=== PATIENT | male | born 1955 | race Caucasian/White ===

== ENCOUNTER 2020-02-13 07:56 | Outpatient (REF) | payer MEDICARE, SELFPAY ==
[2020-02-13 09:21] LABS: Alanine Aminotransferase 14 U/L (0-40); Albumin Level 4.2 g/dL (3.5-5.0); Alkaline Phosphatase 74 U/L (39-117); Anion Gap 14 (12-20); Aspartate Amino Transferase 15 U/L (5-37); Bilirubin Total 1.2 mg/dL (0.0-1.0); Blood Urea Nitrogen 18 mg/dL (9-16); Calcium 8.9 mg/dL (8.4-10.2); Carbon Dioxide 25 mmol/L (22-29); Chloride 105 mmol/L (96-108); Cholesterol 222 mg/dL; Estimated Glomerular Filt Rate > 60; Glucose Random 97 mg/dL (60-115); HDL Cholesterol 37 mg/dL; LDL Cholesterol Calculated 152 mg/dl; Potassium 4.5 mmol/l (3.3-5.1); Sodium 139 mmol/L (135-145); Total Protein 6.5 g/dL (6.5-8.0); Triglycerides 169 mg/dL
== END 2020-02-13 07:57 | disposition home or self-care (01) ==
LOC: HO.LAB 07:56
PROVIDERS: PCP Internal Medicine; Visit Provider Internal Medicine
DX: E78.00 Pure hypercholesterolemia, unspecified (principal)
CPT/HCPCS: 36415; 80053; 80061

== ENCOUNTER → 2020-02-19 10:00 | Outpatient (BNVA) | payer MEDICARE, SELFPAY | PROVIDERS: PCP Internal Medicine; Referring Provider Internal Medicine; Visit Provider Urology | DX: N48.6 Induration penis plastica (principal) | CPT/HCPCS: 99202 ==

== ENCOUNTER → 2020-10-30 09:17 | Outpatient (BNVA) | payer MEDICARE, SELFPAY | PROVIDERS: PCP Internal Medicine; Visit Provider Urology | DX: N48.6 Induration penis plastica (principal) | CPT/HCPCS: Q3014 ==

== ENCOUNTER 2020-11-12 07:12 | Outpatient (REF) | payer MEDICARE, SELFPAY ==
[2020-11-12 07:33] LABS: MANUAL DIFF FLAG NO
[2020-11-12 08:12] LABS: Basophils Percent Auto 0.3 % (0-2); Eosinophils Absolute Auto 0.3 X10*3/uL (0.0-0.4); Eosinophils Percent Auto 4.4 % (0-4); Hematocrit 49.1 % (42-52); Hemoglobin 16.5 g/dl (14.0-18.0); Imm Gran Abs Auto 0.04 X10*3/uL (0.00-0.03); Imm Gran Pct Auto 0.7 % (0.0-0.4); Lymphocytes Percent Auto 32.5 % (20-40); Mean Corpuscular HGB Conc 33.6 g/dl (31.0-36.0); Mean Corpuscular Hemoglobin 30.3 pg (27.0-33.0); Mean Corpuscular Volume 90.3 fL (80-98); Mean Platelet Volume 8.9 fL (9.4-12.4); Monocytes Absolute Auto 0.6 X10*3/uL (0.1-1.2); Monocytes Percent Auto 9.5 % (2-11); Neutrophils Absolute Auto 3.2 X10*3/uL (2.0-8.3); Neutrophils Percent Auto 52.6 % (45-73); Platelet Count 217 X10*3/uL (160-400); Red Blood Count 5.44 X10*6/uL (4.60-5.80); Red Cell Distribution Width 12.9 % (11.0-16.0); White Blood Count 6.1 X10*3/uL (4.8-10.8)
[2020-11-12 08:40] LABS: Alanine Aminotransferase 14 U/L (0-40); Albumin Level 4.3 g/dL (3.5-5.0); Alkaline Phosphatase 90 U/L (39-117); Anion Gap 12 (12-20); Aspartate Amino Transferase 15 U/L (5-37); Bilirubin Total 1.5 mg/dL (0.0-1.0); Blood Urea Nitrogen 16 mg/dL (9-16); Carbon Dioxide 25 mmol/L (22-29); Chloride 106 mmol/L (96-108); Cholesterol 230 mg/dL; Estimated Glomerular Filt Rate > 60; Glucose Random 95 mg/dL (60-115); HDL Cholesterol 38 mg/dL; LDL Cholesterol Calculated 151 mg/dl; Potassium 4.6 mmol/L (3.3-5.1); Sodium 138 mmol/L (135-145); Total Protein 6.8 g/dL (6.5-8.0); Triglycerides 205 mg/dL
[2020-11-12 09:02] LABS: Free T4 (Free Thyroxine) 0.88 ng/dL (0.71-1.85); Prostate Specific Antigen Scr 0.54 ng/mL (<0.05-4.0); Thyroid Stimulating Hormone 1.56 uIU/mL (0.32-4.0)
[2020-11-12 09:07] LABS: Folate 15.2 ng/mL (> or = 4.0); Vitamin B12 949 pg/mL (200-900)
== END 2020-11-12 07:13 | disposition home or self-care (01) ==
LOC: HO.LAB 07:12
PROVIDERS: PCP Internal Medicine; Visit Provider Internal Medicine
DX: E78.00 Pure hypercholesterolemia, unspecified (principal); I10 Essential (primary) hypertension; Z12.5 Encounter for screening for malignant neoplasm of prostate
CPT/HCPCS: 36415; 80053; 80061; 82607; 82746; 84153; 84439; 84443; 85025

== ENCOUNTER 2020-12-30 11:26 | Outpatient (REF) | payer MEDICARE, SELFPAY ==
[2020-12-30 12:32] LABS: Influenza A PCR NEGATIVE (Negative); Influenza B PCR NEGATIVE (Negative); Resp Syncy Virus RNA Qual PCR NEGATIVE (Negative); SARS COV2 PCR INHOUSE NEGATIVE (Negative)
== END 2020-12-30 11:27 | disposition home or self-care (01) ==
LOC: HO.LNP 11:26
PROVIDERS: Visit Provider Physician Assistant
DX: J06.9 Acute upper respiratory infection, unspecified (principal); Z20.822 Contact with and (suspected) exposure to COVID-19
CPT/HCPCS: 0241U

== ENCOUNTER 2021-03-16 07:25 | Outpatient (REF) | payer MEDICARE, SELFPAY ==
[2021-03-16 07:34] LABS: MANUAL DIFF FLAG NO
[2021-03-16 07:53] LABS: Basophils Percent Auto 0.5 % (0-2); Eosinophils Absolute Auto 0.4 X10*3/uL (0.0-0.4); Eosinophils Percent Auto 5.7 % (0-4); Hematocrit 48.8 % (42.0-52.0); Hemoglobin 16.1 g/dl (14.0-18.0); Imm Gran Abs Auto 0.03 X10*3/uL (0.00-0.03); Imm Gran Pct Auto 0.5 % (0.0-0.4); Lymphocytes Absolute Auto 2.5 X10*3/uL (1.2-4.9); Lymphocytes Percent Auto 38.3 % (20-40); Mean Corpuscular Volume 90.9 fL (80.0-98.0); Mean Platelet Volume 9.1 fL (9.4-12.4); Monocytes Absolute Auto 0.6 X10*3/uL (0.1-1.2); Monocytes Percent Auto 8.6 % (2-11); Neutrophils Absolute Auto 3.1 x10*3/uL (2.0-8.3); Neutrophils Percent Auto 46.4 % (45-73); Platelet Count 218 X10*3/uL (160-400); Red Blood Count 5.37 X10*6/uL (4.60-5.80); Red Cell Distribution Width 12.3 % (11.0-16.0); White Blood Count 6.6 X10*3/uL (4.8-10.8)
[2021-03-16 08:22] LABS: Alanine Aminotransferase 15 U/L (0-40); Albumin Level 4.3 g/dL (3.5-5.0); Alkaline Phosphatase 83 U/L (39-117); Anion Gap 10 (12-20); Aspartate Amino Transferase 18 U/L (5-37); Bilirubin Total 1.3 mg/dL (0.0-1.0); Blood Urea Nitrogen 14 mg/dL (9-16); Calcium 9.6 mg/dL (8.4-10.2); Carbon Dioxide 29 mmol/L (22-29); Chloride 105 mmol/L (96-108); Cholesterol 179 mg/dL; Estimated Glomerular Filt Rate > 60; Glucose Random 100 mg/dL (60-115); HDL Cholesterol 33 mg/dL; LDL Cholesterol Calculated 112 mg/dl; Potassium 4.9 mmol/L (3.3-5.1); Sodium 139 mmol/L (135-145); Total Protein 6.8 g/dL (6.5-8.0); Triglycerides 174 mg/dL
[2021-03-16 08:45] LABS: Free T4 (Free Thyroxine) 0.87 ng/dL (0.71-1.85); Thyroid Stimulating Hormone 1.67 uIU/mL (0.32-4.0)
[2021-03-16 09:03] LABS: Folate 13.1 ng/mL (> or = 4.0); Vitamin B12 1520 pg/mL (200-900)
== END 2021-03-16 07:26 | disposition home or self-care (01) ==
LOC: HO.LAB 07:25
PROVIDERS: PCP Internal Medicine; Visit Provider Internal Medicine
DX: Z12.5 Encounter for screening for malignant neoplasm of prostate (principal); E78.00 Pure hypercholesterolemia, unspecified
CPT/HCPCS: 36415; 80053; 80061; 82607; 82746; 84153; 84439; 84443; 85025

== ENCOUNTER 2021-03-31 09:48 | Outpatient (REF) | payer MEDICARE, SELFPAY ==
--- NOTE | ~2021-03-31 | US_ITS ---
EXAMINATION: US VENOUS ULTRASOUND WITH DOPPLER LOWER EXTREMITY, LEFT CLINICAL INFORMATION: Leg swelling.. History of thrombus within the superficial greater saphenous vein in the calf. COMPARISON: Ultrasound left lower x-ray 11-26 TECHNIQUE: Ultrasound of the deep veins is performed from the hip to the calf with compression sonography and color and pulse Doppler assessment. Spectral analysis with color-flow imaging is performed. FINDINGS: There is normal venous compression and respiratory variation and augmented flow. The visualized common femoral vein, superficial femoral vein, profunda femoral vein, popliteal vein, and the trifurcation region shows no evidence of deep venous thrombosis. There is persistent thrombus in the superficial greater saphenous vein in the calf region similar previous study suggestive of thrombophlebitis. There is no significant popliteal fossa cyst. If the patient's symptoms persist, followup ultrasound in 5 days 7 days might be of value to exclude proximal propagation from a non-visualized calf vein. US/US venous duplex LE IMPRESSION: No DVT demonstrated in the left lower extremity. There is subdural thrombophlebitis in the left greater saphenous vein in the calf region, similar to previous study.
== END 2021-03-31 09:49 | disposition home or self-care (01) ==
LOC: HO.US 09:48
PROVIDERS: PCP Internal Medicine; Visit Provider Internal Medicine
DX: R60.0 Localized edema (principal); M79.89 Other specified soft tissue disorders
CPT/HCPCS: 93971

== ENCOUNTER 2021-04-13 12:00 | Day surgery (SDC) | payer MEDICARE, SELFPAY ==
[2021-04-08 09:04] VITALS: BMI 26.1
[2021-04-13] MEDS: Gentamicin Sulfate/NaCl 80 MG/100 ML PIGGYBACK 100 MG IV (13:14)
--- NOTE | 2021-04-13 13:15 | P.CONAN_ITS ---
HPI - Anesthesia Eval Consult details Narrative: Screening Colonoscopy REPLACED BY [facility] Active Problems Active Problems: All Active Problems (Updated 04/06/21 @ 16:48 by Micheal Rush MD) Recurrent idiopathic thrombophlebitis (Acute) Left leg swelling (Acute) Impaired glucose tolerance (Acute) Upper respiratory tract infection (Acute) Encounter for Medicare annual wellness exam (Acute) Peyronie disease (Acute) GERD (gastroesophageal reflux disease) (Acute) Tubular adenoma of colon (Acute) Hearing impairment (Acute) Anxiety (Acute) Thrombophlebitis leg (Acute) Knee osteoarthritis (Acute) Hypercholesterolemia (Acute) Hypertension (Acute) Past Medical History Medical History Anxiety GERD (gastroesophageal reflux disease) Hearing impairment Hemorrhoids Hypercholesterolemia Hypertension Knee osteoarthritis Pulmonary nodule Right knee meniscal tear Thrombophlebitis leg Tubular adenoma of colon Family History Family History (Updated 11/26/20 @ 13:29 by JEANETTE Hoffmann) Father No problems noted. Mother Hypertension Paternal Grandmother Pancreatic cancer Family history of problems with anesthesia: No Surgical History Surgical History History of inguinal hernia repair History of knee replacement procedure of right knee History of vasectomy Hx of shoulder surgery S/P medial meniscectomy of right knee History of Problems with Anesthesia: No Social History Social History Housing: House Alcohol intake: current Alcohol intake frequency: holidays/special occasions only Patient Tobacco Use Status: Never used Tobacco e-Cigarette/Vaping Use: Never Used Second Hand Smoke Exposure: No Advance Directives: No Advance Directives Information Provided: Yes Current occupational status: retired Meds Allergies Allergy/AdvReac Type Severity Reaction Status Date / Time lisinopril [LISINOPRIL] Allergy Unknown UNKNOWN Verified 03/31/21 08:51 penicillin G [Penicillin G] Allergy Unknown RASH,HIVES Verified 03/31/21 08:51 penicillin V Allergy Unknown Unknown Verified 03/31/21 08:51 tadalafil AdvReac Severe Leg cramps Verified 03/31/21 08:51 Active Medications: Current Medications Lactated Ringer's (Lr) 1,000 mls @ 50 mls/hr IVCONT .Q20H POOJA Sodium Biphosphate/Sodium Phosphate (Sodium Phosphate,Irion-Dibasic 133 Ml Enema) 133 ml WA ONCE PRN PRN Reason: Poor Colonoscopy Prep Results Home Medications Medication Instructions Recorded Confirmed Last Taken Type cholecalciferol (vitamin D3) 25 25 mcg PO DAILY 11/20/19 03/31/21 Unknown History mcg (1,000 unit) capsule Exam Exam Date and Time: April 13, 2021 1315 Height,Weight and Vital Signs: Height 5 ft 11.5 in Weight 86.183 kg Airway Mallampati Class: II TM Dist: >3cm Neck ROM: Full Loose/Missing/Broken Teeth: No Heart: [id number] Lungs: cta b/l Assessment and Plan Assessment Anesthesia Assessment: Anesthesia Plan Discussed and Chart Reviewed Final Anesthetic Review Family History of Problems with Anesthesia: No History of Problems with Anesthesia: No NPO: Yes ASA Class: III Final Preanesthetic Review: No Changes in Pt Med Stat, Meds/Allgs Chart Reviewed, Consent Obtained/Reviewed and Anes Risks/Benef Reviewed Patient Risk: Intermediate Procedure Risk: Low Assessment/Block/Sedation in SS: Assess/Block/Sedation-SS Anesthetic Plan Anesthetic Plan: MAC: and Agree w/ Assess. and Plan Disposition: Standard PACU
[2021-04-13] MEDS: vancomycin HCL 1,500 MG in 0.9 % Sodium Chloride 500 ML 333.33 MG IV (13:23)
[2021-04-13 13:25] VITALS: BP 136/70; PULSE 54; RESP 18; TEMP 36.1; O2SAT 98
[2021-04-13 15:24] VITALS: BP 97/57; PULSE 47; RESP 14; TEMP 36.4; O2SAT 99
--- NOTE | 2021-04-13 15:24 | PM.OP ---
Brief Operative Note Date of Service: 04/13/21 Pre-op diagnosis: Screening Post-op diagnosis: other (Colon polyps) Procedure: Colonoscopy to the cecum and TI with bx/removal of polyps Surgeon: Carloz Garcia Anesthesia: MAC Was an Supervisor Laboratory Animal Facility used for this Procedure?: No Estimated blood loss (mL): 2.0 Pathology: other (A. Cecal polyp B. Transverse colon polyps) Condition: stable Disposition: PACU
[2021-04-13 15:41] VITALS: BP 122/69; PULSE 50; RESP 16; TEMP 36.7; O2SAT 99
--- NOTE | 2021-04-13 21:07 | OP_ITS ---
SURGEON: Carloz Garcia MD INDICATIONS: The patient presents for evaluation of personal history of tubular adenoma of the colon and colorectal cancer screening. Full consent has been obtained from him for this, including risks of bleeding and perforation. PREOPERATIVE DIAGNOSIS: POSTOPERATIVE DIAGNOSIS: PROCEDURE PERFORMED: Colonoscopy to cecum and terminal ileum with biopsy and removal of polyps. ESTIMATED BLOOD LOSS: COMPLICATIONS: ANESTHESIA: Monitored anesthesia care. ASSISTANTS: SPECIMENS: PREOPERATIVE DIAGNOSES: Colorectal cancer screening and personal history of tubular adenoma of the colon. POSTOPERATIVE DIAGNOSES: Colorectal cancer screening and personal history of tubular adenoma of the colon, small colon polyps, diverticulosis and internal hemorrhoids. DESCRIPTION OF PROCEDURE: The patient was placed in left lateral decubitus position. The digital rectal exam revealed no abnormalities. The Olympus video pediatric colonoscope was entered into the rectum and advanced easily to the cecum. Once in the cecum, I did identify normal-appearing cecal pouch with appendiceal orifice and a normal-appearing ileocecal valve. The terminal ileum was cannulated and appeared normal. The scope was withdrawn back in the colon. The entire cecum was well visualized and appeared normal other than a 3 mm polyp, which was biopsied and completely removed with cold biopsy forceps. The scope was slowly withdrawn assessing all mucosal surfaces carefully. Preparation was excellent. In the transverse colon were 2 flat less than 5 mm polyps, which were all biopsied and completely removed with cold biopsy forceps. I did not visualize any other polyps, colitis, or angiodysplasia. There was a mild amount of sigmoid diverticulosis. In the rectum, scope was retroflexed visualizing small internal hemorrhoids, but no other pathology. The rectal mucosa appeared normal. The scope was straightened and withdrawn from the patient. He tolerated the procedure well and was returned to recovery area in stable condition. IMPRESSION: 1. Colon polyps, status post biopsy removal. 2. Diverticulosis. 3. Internal hemorrhoids. PLAN: The results of biopsy will be checked. I would recommend a repeat colonoscopy in 5 years for further screening. He will otherwise see me on a p.r.n. basis. Of note, he did receive antibiotics prior to the procedure in regard to the relatively recent knee replacement. MD ROSALIA Irving/ROOPA / [id number]
== END 2021-04-13 13:55 | disposition home or self-care (01) ==
PROVIDERS: PCP Internal Medicine; Visit Provider Internal Medicine
PROC: 0DJD8ZZ Inspection of Lower Intestinal Tract, Via Natural or Artificial Opening Endoscopic (ICD-10-PCS; CPT 45378; principal; 2021-04-13 13:20)
DX: Z12.11 Encounter for screening for malignant neoplasm of colon (principal); Z86.010 Personal history of colon polyps; D12.0 Benign neoplasm of cecum; D12.3 Benign neoplasm of transverse colon; K57.30 Diverticulosis of large intestine without perforation or abscess without bleeding; K64.8 Other hemorrhoids; I10 Essential (primary) hypertension; E78.5 Hyperlipidemia, unspecified; Z79.899 Other long term (current) drug therapy; Z88.0 Allergy status to penicillin; Z88.8 Allergy status to other drugs, medicaments and biological substances; Z96.651 Presence of right artificial knee joint
CPT/HCPCS: 45380; 88305; J1580; J3370

== ENCOUNTER → 2021-05-07 14:27 | Outpatient (BNVA) | payer MEDICARE, SELFPAY | PROVIDERS: PCP Internal Medicine; Visit Provider Surgery Vascular Surgery | DX: Z13.6 Encounter for screening for cardiovascular disorders (principal); I83.11 Varicose veins of right lower extremity with inflammation | CPT/HCPCS: 99202 ==

== ENCOUNTER 2021-06-08 12:52 | Outpatient (REF) | payer MEDICARE, SELFPAY ==
--- NOTE | ~2021-06-08 | US_ITS ---
EXAMINATION: US RETROPERITONEAL LIMITED (AORTA) CLINICAL INFORMATION: This is a 66-year-old male evaluate for abdominal aortic aneurysm.. COMPARISON: Comparison is made to a previous study dated 02/02/2016. TECHNIQUE: Patten-scale, color Doppler and spectral Doppler evaluation of the abdominal aorta. FINDINGS: There is mild ectasia of the abdominal aorta with scattered atherosclerotic disease. No abdominal aortic aneurysm is seen. The measurements of the aorta in maximum AP and transverse dimensions respectively are as follows: Proximal: 2.9 x 2.9 cm. Previously, 2.9 x 3.1 cm. Mid: 2.4 x 2.6 cm. Previously, 2.4 x 2.4 cm. Distal: 2.2 x 2.6 cm. Previously, 2.1 x 2.1 cm. PSV: 95 cm/s. The measurements of the common iliac arteries in maximum AP and TRV dimensions are as follows: Right Common Iliac Artery: 1.6 cm. Previously, 1.1 cm. Left Common Iliac Artery: 1.6 cm. Previously, 0.9 cm. US/US abdominal aortic aneurysm IMPRESSION: There is mild ectasia of the abdominal aorta with scattered atherosclerotic disease. No abdominal aortic aneurysm is seen. No significant change is identified.
--- NOTE | ~2021-06-08 | US_ITS ---
EXAMINATION: US VENOUS ULTRASOUND WITH DOPPLER LOWER EXTREMITY, BILATERAL CLINICAL INFORMATION: Right lower extremity, symptomatic varicose veins. COMPARISON: Right lower extremity duplex ultrasound on 07/19/2016. TECHNIQUE: Color flow triplex imaging and compression Doppler was performed to evaluate both the deep and the superficial systems bilaterally. To evaluate the superficial system, the examination was performed in the upright position. Color-flow Doppler ultrasound and compression ultrasound were utilized. In addition, maneuvers were utilized to demonstrate reflux. FINDINGS: SUPERFICIAL ULTRASOUND WITH DOPPLER OF RIGHT LOWER EXTREMITY GREAT SAPHENOUS VEIN: Saphenofemoral junction: 0.7 cm Max diameter: 0.7 cm Min diameter: 0.3cm Reflux: There is reflux throughout the great saphenous vein beginning at the junction/proximal thigh measuring up to 3.1 seconds. Reflux is demonstrated from the junction/proximal thigh all the way through to the ankle. DUPLICATED MEDIAL GREAT SAPHENOUS VEIN: Max Diameter: None Imaged Reflux: NA DUPLICATED LATERAL GREAT SAPHENOUS VEIN: Diameter: None Imaged Reflux: NA SMALL SAPHENOUS VEIN: Proximal Calf: 0.2 cm Distal Calf: 0.2 cm Reflux: No evidence of reflux. VEIN OF GIACOMINI: None Imaged. PERFORATORS: Location: Thigh and mid calf measuring 2 mm. Reflux: None. VARICOSITIES: Location: Mid thigh measuring 3 mm. Reflux: None. DEEP VENOUS ULTRASOUND OF THE RIGHT LOWER EXTREMITY: Common Femoral Vein: Compressible, normal respiratory variation and augmented flow. Femoral vein: Compressible, normal color flow and augmentation. Popliteal Vein: Compressible, normal augmentation. Deep Reflux: There is no evidence of reflux in the deep system in either the common femoral vein or the popliteal vein. Rod's Cyst: There is no evidence of a Rod's cyst. SUPERFICIAL ULTRASOUND WITH DOPPLER OF LEFT LOWER EXTREMITY GREAT SAPHENOUS VEIN: Saphenofemoral junction: 0.8 cm Max diameter: 0.8 cm Min diameter: 0.2 cm Reflux: There is segmental reflux below the knee measuring up to 1.6 seconds. Additional: There is noncompressibility and echogenic thrombus present within the great saphenous vein at the mid calf and ankle. DUPLICATED MEDIAL GREAT SAPHENOUS VEIN: Max Diameter: None Imaged Reflux: NA DUPLICATED LATERAL GREAT SAPHENOUS VEIN: Diameter: None Imaged Reflux: NA SMALL SAPHENOUS VEIN: Proximal Calf: 0.2 cm Distal Calf: 0.2 cm Reflux: There is reflux throughout the small saphenous vein measuring up to 1.6 seconds. VEIN OF GIACOMINI: None Imaged. PERFORATORS: Location: None Imaged Reflux: NA VARICOSITIES: Location: None Imaged Reflux: NA DEEP VENOUS ULTRASOUND OF THE LEFT LOWER EXTREMITY: Common Femoral Vein: Compressible, normal respiratory variation and augmented flow. Femoral vein: Compressible, normal color flow and augmentation. Popliteal Vein: Compressible, normal augmentation. Deep Reflux: There is no evidence of reflux in the deep system in either the common femoral vein or the popliteal vein. Rod's Cyst: There is no evidence of a Rod's cyst. US/US venous duplex LE BI IMPRESSION: Right great saphenous venous insufficiency beginning at the saphenofemoral junction/proximal thigh and extending to the ankle. Segmental left great saphenous venous insufficiency below the knee. Superficial thrombophlebitis of the distal left great saphenous vein at the mid calf and ankle. Left small saphenous venous insufficiency.
== END 2021-06-08 12:53 | disposition home or self-care (01) ==
LOC: HO.US 12:52
PROVIDERS: Visit Provider Surgery Vascular Surgery
DX: Z13.6 Encounter for screening for cardiovascular disorders (principal); I83.11 Varicose veins of right lower extremity with inflammation
CPT/HCPCS: 76706; 93970

== ENCOUNTER → 2021-06-16 14:18 | Outpatient (BNVA) | payer MEDICARE, SELFPAY | PROVIDERS: PCP Internal Medicine; Visit Provider Surgery Vascular Surgery | DX: Z13.6 Encounter for screening for cardiovascular disorders (principal); I83.12 Varicose veins of left lower extremity with inflammation | CPT/HCPCS: 99212 ==

== ENCOUNTER 2021-07-13 11:06 | Outpatient (REF) | payer MEDICARE, SELFPAY ==
--- NOTE | ~2021-07-13 | US_ITS ---
EXAMINATION: US VENOUS ULTRASOUND WITH DOPPLER LOWER EXTREMITY, LEFT CLINICAL INFORMATION: Pain COMPARISON: Previous ultrasound most recent June 2021 TECHNIQUE: Ultrasound of the deep veins is performed from the hip to the calf with compression sonography and color and pulse Doppler assessment. Spectral analysis with color-flow imaging is performed. FINDINGS: There is normal venous compression and respiratory variation and augmented flow. The visualized common femoral vein, superficial femoral vein, profunda femoral vein, popliteal vein, and the trifurcation region shows no evidence of deep venous thrombosis. The left greater saphenous vein is patent. There is no significant popliteal fossa cyst. US/US venous duplex LE LT IMPRESSION: No DVT demonstrated in the left lower extremity.
== END 2021-07-13 11:07 | disposition home or self-care (01) ==
LOC: HO.US 11:06
PROVIDERS: Visit Provider Surgery Vascular Surgery
DX: M79.605 Pain in left leg (principal)
CPT/HCPCS: 93971

== ENCOUNTER → 2021-08-28 07:33 | Outpatient (BNVA) | payer MEDICARE, SELFPAY | PROVIDERS: PCP Internal Medicine; Visit Provider Surgery Vascular Surgery | DX: I83.12 Varicose veins of left lower extremity with inflammation (principal) | CPT/HCPCS: 36475 ==

== ENCOUNTER 2021-08-31 10:24 | Outpatient (REF) | payer MEDICARE, SELFPAY ==
--- NOTE | ~2021-08-31 | US_ITS ---
EXAMINATION: US VENOUS ULTRASOUND WITH DOPPLER LOWER EXTREMITY, LEFT CLINICAL INFORMATION: Status post left RFA on 08/28/2021 COMPARISON: None TECHNIQUE: Ultrasound of the deep veins is performed from the hip to the calf with compression sonography and color and pulse Doppler assessment. Spectral analysis with color-flow imaging is performed. FINDINGS: There is acute thrombus status post RFA visualized in the right greater saphenous vein approximately 0.60 cm from femoral venous junction. No extension of clot into the superficial femoral vein. There is normal venous compression and respiratory variation and augmented flow. The visualized common femoral vein, superficial femoral vein, profunda femoral vein, popliteal vein, and the trifurcation region shows no evidence of deep venous thrombosis. There is no significant popliteal fossa cyst. If the patient's symptoms persist, followup ultrasound in 5 days 7 days might be of value to exclude proximal propagation from a non-visualized calf vein. US/US venous duplex LE IMPRESSION: 1. There is clot visualized in greatest superficial greater saphenous vein approximately 0.6 cm from superficial femoral venous junction. 2. Otherwise no DVT demonstrated in the left lower extremity.
== END 2021-08-31 10:25 | disposition home or self-care (01) ==
LOC: HO.US 10:24
PROVIDERS: Visit Provider Surgery Vascular Surgery
DX: M79.605 Pain in left leg (principal)
CPT/HCPCS: 93971

== ENCOUNTER → 2021-09-10 14:56 | Outpatient (BNVA) | payer MEDICARE, SELFPAY | PROVIDERS: PCP Internal Medicine; Visit Provider Surgery Vascular Surgery | DX: I83.12 Varicose veins of left lower extremity with inflammation (principal) | CPT/HCPCS: 99212 ==

== ENCOUNTER → 2022-05-04 15:07 | Outpatient (BNVA) | payer MEDICARE, SELFPAY | PROVIDERS: PCP Internal Medicine; Visit Provider Surgery Vascular Surgery | DX: I83.11 Varicose veins of right lower extremity with inflammation (principal) | CPT/HCPCS: 99212 ==

== ENCOUNTER 2022-05-18 06:47 | Outpatient (REF) | payer MEDICARE, SELFPAY ==
[2022-05-18 06:58] LABS: MANUAL DIFF FLAG NO
[2022-05-18 07:36] LABS: Basophils Percent Auto 0.7 % (0-2); Eosinophils Absolute Auto 0.4 X10*3/uL (0.0-0.4); Eosinophils Percent Auto 6.9 % (0-4); Hematocrit 48.1 % (42.0-52.0); Hemoglobin 16.2 g/dl (14.0-18.0); Imm Gran Abs Auto 0.02 X10*3/uL (0.00-0.03); Imm Gran Pct Auto 0.4 % (0.0-0.4); Lymphocytes Absolute Auto 2.4 X10*3/uL (1.2-4.9); Lymphocytes Percent Auto 41.7 % (20-40); Mean Corpuscular HGB Conc 33.7 g/dl (31.0-36.0); Mean Corpuscular Hemoglobin 30.8 pg (27.0-33.0); Mean Corpuscular Volume 91.4 fL (80.0-98.0); Mean Platelet Volume 8.9 fL (9.4-12.4); Monocytes Absolute Auto 0.5 X10*3/uL (0.1-1.2); Monocytes Percent Auto 8.3 % (2-11); Neutrophils Absolute Auto 2.4 x10*3/uL (2.0-8.3); Platelet Count 241 X10*3/uL (160-400); Red Blood Count 5.26 X10*6/uL (4.60-5.80); Red Cell Distribution Width 12.3 % (11.0-16.0); White Blood Count 5.7 X10*3/uL (4.8-10.8)
[2022-05-18 07:41] LABS: Estimated Average Glucose 100 mg/dL; Hemoglobin A1c % 5.1 %
[2022-05-18 08:19] LABS: Alanine Aminotransferase 19 U/L (0-40); Albumin Level 4.2 g/dL (3.5-5.0); Alkaline Phosphatase 94 U/L (39-117); Anion Gap 10 (12-20); Aspartate Amino Transferase 19 U/L (5-37); Bilirubin Total 1.7 mg/dL (0.0-1.0); Blood Urea Nitrogen 11 mg/dL (9-16); Calcium 9.3 mg/dL (8.4-10.2); Carbon Dioxide 28 mmol/L (22-29); Chloride 107 mmol/L (96-108); Cholesterol 181 mg/dL; Estimated Glomerular Filt Rate > 60; Glucose Random 94 mg/dL (60-115); HDL Cholesterol 38 mg/dL; LDL Cholesterol Calculated 110 mg/dl; Potassium 4.3 mmol/L (3.3-5.1); Sodium 141 mmol/L (135-145); Total Protein 6.3 g/dL (6.5-8.0); Triglycerides 165 mg/dL
[2022-05-18 08:39] LABS: Folate 12.3 ng/mL (> or = 4.0); Free T4 (Free Thyroxine) 0.94 ng/dL (0.71-1.85); Prostate Specific Antigen Scr 0.59 ng/mL (<0.05-4.0); Thyroid Stimulating Hormone 2.13 uIU/mL (0.32-4.0); Vitamin B12 533 pg/mL (200-900)
== END 2022-05-18 06:48 | disposition home or self-care (01) ==
LOC: HO.LAB 06:47
PROVIDERS: PCP Internal Medicine; Visit Provider Internal Medicine
DX: Z12.5 Encounter for screening for malignant neoplasm of prostate (principal); R73.02 Impaired glucose tolerance (oral); E78.00 Pure hypercholesterolemia, unspecified
CPT/HCPCS: 36415; 80053; 80061; 82607; 82746; 83036; 84153; 84439; 84443; 85025

== ENCOUNTER → 2022-06-11 07:40 | Outpatient (BNVA) | payer MEDICARE, SELFPAY | PROVIDERS: PCP Internal Medicine; Visit Provider Surgery Vascular Surgery | DX: I83.11 Varicose veins of right lower extremity with inflammation (principal) | CPT/HCPCS: 36482 ==

== ENCOUNTER 2022-06-14 11:25 | Outpatient (REF) | payer MEDICARE, SELFPAY ==
--- NOTE | ~2022-06-14 | US_ITS ---
EXAMINATION: TRIPLEX SCANNING OF RIGHT LOWER EXTREMITY; SUPERFICIAL ULTRASOUND WITH DOPPLER OF RIGHT LOWER EXTREMITY CLINICAL INFORMATION: Status post Venaseal of the right great saphenous vein COMPARISON: Ultrasound from 06/08/2021. TECHNIQUE: Color flow triplex imaging and compression Doppler were performed as well as superficial ultrasound with Doppler. FINDINGS: RIGHT LOWER EXTREMITY DEEP VENOUS SYSTEM: Respiratory variation, normal compression and augmented flow are noted throughout the lower extremity. The visualized common femoral vein, femoral vein, profunda femoral vein, popliteal vein and the calf veins show no evidence of deep venous thrombosis. There is no evidence of Rod's cyst. SUPERFICIAL VENOUS SYSTEM: The great saphenous vein is occluded from the access site to just 0.1 cm before the saphenofemoral junction. There is no extension of thrombus into the deep system. US/US venous duplex LE RT IMPRESSION: 1. No evidence of DVT. 2. Excellent appearance status post ablation of the left great saphenous vein as described above.
== END 2022-06-14 11:26 | disposition home or self-care (01) ==
LOC: HO.US 11:25
PROVIDERS: PCP Internal Medicine; Visit Provider Surgery Vascular Surgery
DX: M79.604 Pain in right leg (principal)
CPT/HCPCS: 93971

== ENCOUNTER → 2022-06-24 15:13 | Outpatient (BNVA) | payer MEDICARE, SELFPAY | PROVIDERS: PCP Internal Medicine; Visit Provider Surgery Vascular Surgery | DX: I83.11 Varicose veins of right lower extremity with inflammation (principal); I83.12 Varicose veins of left lower extremity with inflammation | CPT/HCPCS: 99212 ==

== ENCOUNTER 2022-12-16 08:55 | Outpatient (AMB) | payer MEDICARE, SELFPAY ==
[2022-12-16 09:11] VITALS: BP 128/82; PULSE 68; O2SAT 98; BMI 25.6
--- NOTE | 2022-12-16 09:11 | A.OFFPC_ITS ---
Vital Signs 12/16/22 09:11 Height 6 ft 1 in Weight 87.997 kg BMI 25.6 BP 128/82 Blood Pressure Location Lt brachial Position Sitting Pulse 68 Pulse Source Pulse Oximeter Pulse Oximetry (%) 98 Oxygen Delivery Method Room Air Intake Visit Reasons: PE Allergies losartan Allergy (Intermediate, Verified 12/16/22 09:12) cough lisinopril [LISINOPRIL] Allergy (Unknown, Verified 12/16/22 09:12) UNKNOWN penicillin G [Penicillin G] Allergy (Unknown, Verified 12/16/22 09:12) RASH,HIVES penicillin V Allergy (Unknown, Verified 12/16/22 09:12) Unknown tadalafil Adverse Reaction (Severe, Verified 12/16/22 09:12) Leg cramps Medication List - Last Reconciled 12/16/22 by Micheal Rush MD albuterol sulfate 90 mcg/actuation 1 inh inhalation Q4-6H PRN B-complex with vitamin C 1 cap PO DAILY cholecalciferol (vitamin D3) 25 mcg PO DAILY ketotifen fumarate 0.025%(0.035%) ([place]) 1 drp ophthalmic (eye) Q12H loratadine (Claritin) 10 mg PO DAILY metoprolol succinate ER 25 mg PO DAILY 90 days simvastatin 20 mg PO BEDTIME Tobacco use date assessed: 04/13/22 Fall risk assessment: No Falls in past year Last assessed Fall Risk: 12/16/22 Dental Screening Dental Screen Date: 12/16/22 Did you have a dental visit in the last 12 months?: Yes Did you have a dental problem in the last 6 months where you did not have access to dental care?: No Was dental information given to patient?: Patient has dentist HPI PE HPI Details 67-year-old male with hypertension, hype rcholesterol E impaired glucose tolerance and peripheral vascular disease last seen in December 2021. Patient's colonoscopy is up-to-date April 2021. With the peripheral vascular disease patient follows up with the vascular surgeon in June 2019 had GSV right venous seal June 2022 history of left GSV RFA a August 2021. Patient was also seen by the nurse practitioner in April 2022 for finger pain and wanted to do a referral to Rheumatology. R thumb injection done arthritis treatment center- . october had covid. BP med change due to cough- took metoprolol but gerd problem takes on ly [id number] mg 1/2 tab but was told BP high and now taking 25 mg QD. [facility] Medical History (Updated 12/16/22 @ 09:37 by Micheal Rush MD) Varicose veins of left lower extremity with inflammation Encounter for abdominal aortic aneurysm (AAA) screening Left leg swelling Upper respiratory tract infection Right knee meniscal tear Pulmonary nodule Hemorrhoids GERD (gastroesophageal reflux disease) Tubular adenoma of colon Hearing impairment Anxiety Thrombophlebitis leg Knee osteoarthritis Hypercholesterolemia Hypertension Surgical History Status post ablation of incompetent vein using laser (08/28/21) History of knee replacement procedure of right knee S/P medial meniscectomy of right knee Hx of shoulder surgery History of vasectomy History of inguinal hernia repair Family History Father No problems noted. Mother Hypertension Paternal Grandmother Pancreatic cancer Social History (Updated 12/16/22 @ 09:41 by Micheal Rush MD) Housing: House Alcohol intake: current Alcohol intake frequency: holidays/special occasions only Patient Tobacco Use Status: Former Tobacco user Tobacco use type: Cigarette Years Smoked: 2011 quit e-Cigarette/Vaping Use: Never Used Second Hand Smoke Exposure: No Current occupational status: retired Cognitive needs: No Hearing needs: Yes Vision needs: Yes Questionnaire PHQ-9 Over the last 2 weeks, how often have you been bothered by any of the following problems? 1. Little interest or pleasure in doing things: not at all 2. Feeling down, depressed, or hopeless: not at all 3. Trouble falling or staying asleep, or sleeping too much: not at all 4. Feeling tired or having little energy: not at all 5. Poor appetite or overeating: not at all 6. Feeling bad about yourself - or that you are a failure or have let yourself or your family down: not at all 7. Trouble concentrating on things, such as reading the newspaper or watching television: not at all 8. Moving or speaking so slowly that other people could have noticed. Or the opposite - being so fidgety or restless that you have been moving around a lot more than usual: not at all 9. Thoughts that you would be better off or of hurting yourself in some way: not at all Total score: 0 Depression Screening Interpretation: Negative Depression Screening Done: Yes Source: Developed by Drs. Carloz Ca, Dhaval Stark and colleagues, with an educational brennan from [employer]. Thrive Questionnaire Date Thrive assessed: 04/13/22 AUDIT C Alcohol Use Questionnaire (AUDIT-C) 1. How often do you have a drink containing alcohol?: Monthly or less 2. How many drinks containing alcohol do you have on a typical day when you are drinking?: 1 or 2 3. How often do you have six or more drinks on one occasion?: Never Total Score: 1 SAMARA-7 AMB Questionnaire SAMARA-7 Date SAMARA - 7 assessed: 04/13/22 Source: Developed by Drs. Carloz Ca, Brooklynn Shukla, Dhaval Crawford and colleagues, with an educational brennan from [employer]. Review of Systems Const Denies poor appetite and Denies weakness Eyes Denies no additional complaints ENT Reports Normal hearing present, Denies dizziness, Denies nasal congestion, Denies tinnitus and Denies sore throat Card Denies chest pain, Denies syncope, Denies rapid heart rate and Denies dyspnea Resp Denies cough and Denies dyspnea GI Denies change in stool character, Reports constipation, Denies diarrhea, Denies nausea and Denies vomiting Denies dysuria and Denies urinary frequency Neuro Reports Normal hearing present, Denies confusion, Denies dizziness, Denies syncope and Denies weakness Psych Denies confusion Physical exam (Primary Care) Vital Signs: Last Vital Signs Pulse 68 12/16/22 09:11 BP 128/82 12/16/22 09:11 Pulse Ox 98 12/16/22 09:11 Oxygen Delivery Method Room Air 12/16/22 09:11 BMI result Body Mass Index 25.6 Tobacco/Smoking Status: Tobacco use Status Tobacco use date assessed 04/13/22 12/16/22 09:20 Patient Tobacco Use Status Former Tobacco user 12/16/22 09:41 Tobacco use type Cigarette 12/16/22 09:41 e-Cigarette/Vaping Use Never Used 12/16/22 09:41 PHQ-9: PHQ-9 Score PHQ-9: Total score 0 12/16/22 09:26 Depression Screening Interpretation: Negative Thrive Assessment: Date of Thrive Assessment Date Thrive assessed 04/13/22 12/16/22 09:20 Const General: No confusion Orientation/consciousness: No confusion HENMT Head: Yes normocephalic Ears: external ears normal and TM's normal bilaterally Face and sinus: Yes normal facial exam Mouth: moist mucous membranes Throat: Yes tonsils normal Eyes Conjunctivae: conjunctivae normal Pupils: Equal, round and reactive pupils present and Pupil accommodation reflex normal Direct Ophthalmoscopy: normal light reflex Neck Neck: No lymphadenopathy Thyroid: Thyroid normal Chest Chest palpation & inspection: normal inspection of the chest Resp Effort & Inspection: normal respiratory effort and no audible wheezes Auscultation: clear to auscultation bilaterally, no crackles, no wheezes and lung sounds not diminished Cardio Rate: regular rate Rhythm: regular rhythm Peripheral pulses: radial pulses present and dorsalis pedis present GI Other: guaiac negative prostate N Palpation (GI): no masses Auscultation: normal bowel sounds and normoactive bowel sounds Male General Exam: Yes normal external exam Skin General skin exam: no rashes or lesions noted Rashes: no rashes Neuro General: No confusion Cranial nerves: Yes Equal, round and reactive pupils present and Yes Normal hearing present Cognition (Neuro): normal cognition Gait exam (Neuro): Normal gait present Motor exam (neuro): 5/5 motor strength present throughout Deep tendon reflexes (DTR's): Right brachioradialis reflex intensity grade: 2+, Left brachioradialis reflex intensity grade: 2+, Right patellar reflex intensity grade: 2+ and Left patellar reflex intensity grade: 2+ Extrem General: No edema Office Procedures Flu Questionnaire Does the patient have a severe egg allergy?: No Does the patient have severe life threatening allergies?: No Does the patient have a fever or illness today?: No Has the patient ever had Guillain-[place] Syndrome?: No Has the patient ever had any past reaction to a flu shot?: No Immunizations flu vacc [id number] 6mos up(PF) 60 mcg(15 mcgx4)/0.5 mL IM syringe Performing Provider: Micheal Rush MD Performing Location: [facility] Administered by: Jessica Swann CMA on 12/16/22 09:56 Dose Route Admin Location Dispensed Lot Number Expiration Date NDC Utility [employer] Super[employer] 0.5 mL IM Left Deltoid 0.5 mL [id number] 08/07/23 14871-520-67 [employer] VIS Given Date VIS Provided VIS Publication Date 12/16/22 Single Vaccine 20 Eligibility Eligibility Date Funding Source Not VFC Eligible 12/16/22 Private Assessment and Plan Assessment & Plan (1) Annual physical exam: Code(s): Z00.00 - Encounter for general adult medical examination without abnormal findings (2) Hypertension: Code(s): I10 - Essential (primary) hypertension Qualifiers: Hypertension type: essential hypertension Qualified Code(s): I10 - Essential (primary) hypertension Plan: Continue with blood pressure medication. Decrease salt intake and exercise presently on metoprolol 25 mg once a day (3) Hypercholesterolemia: Code(s): E78.00 - Pure hypercholesterolemia, unspecified Plan: Avoid fried foods, chicken skin, eggs, butter margarine, pastries and meat. Be it pork or beef they have a lot of cholesterol LDL goal of less than 130 and triglyceride of less than 150. Patient on simvastatin 20 mg once a day May 2022 last blood work (4) Impaired glucose tolerance: Code(s): R73.02 - Impaired glucose tolerance (oral) Plan: Decrease the amount of carbohydrate intake, pasta, bread, rice and potatoes are all sugar and that is aside from all the sweet stuff, remember that fruits are good but they are Sweet also. (5) Varicose veins of right lower extremity with inflammation: Comment: 06/11/2022- right great saphenous vein Cyanoacralate ablation Code(s): I83.11 - Varicose veins of right lower extremity with inflammation Plan: Patient continues follow-up with vascular surgeon has had surgery/ablation done on both legs (6) Varicose veins of left lower extremity with inflammation: Comment: 08/28/2021 - left great saphenous vein Cyanoacralate ablation Code(s): I83.12 - Varicose veins of left lower extremity with inflammation (7) Plantar fasciitis, right: Code(s): M72.2 - Plantar fascial fibromatosis (8) Allergy desensitization therapy: Comment: Dr. Cummins allergy shots Code(s): Z51.6 - Encounter for desensitization to allergens Orders: Orders Comprehensive Met. Panel 5 Months E78.00 - Pure hypercholesterolemia, unspecified Free T4 (Free Thyroxine) 5 Months E78.00 - Pure hypercholesterolemia, unspecified Lipid Panel 5 Months E78.00 - Pure hypercholesterolemia, unspecified, I10 - Essential (primary) hypertension Hemoglobin A1c 5 Months R73.02 - Impaired glucose tolerance (oral) Complete Blood Count Auto Diff 5 Months E78.00 - Pure hypercholesterolemia, unspecified Prostate Specific Antigen Scr 5 Months E78.00 - Pure hypercholesterolemia, unspecified Vitamin B12 and Folate 5 Months E78.00 - Pure hypercholesterolemia, unspecified Thyroid Stimulating Hormone 5 Months R73.02 - Impaired glucose tolerance (oral) ECG 12 lead EKG Today I10 - Essential (primary) hypertension Influenza [id number] Immunization Today Z23 - Encounter for immunization Medications: Changed From metoprolol succinate ER 25 mg PO DAILY I10 - Essential (primary) hypertension To metoprolol succinate ER 25 mg PO DAILY 90 tabs 3RF 90 days I10 - Essential (primary) hypertension Coding Level of Care Code Est Pt Prev Care >65y(74746) Diagnoses Annual physical exam Z00.00 Essential hypertension I10 Hypertension type: essential hypertension Hypercholesterolemia E78.00 Impaired glucose tolerance R73.02 Varicose veins of right lower extremity with inflammation I83.11 Varicose veins of left lower extremity with inflammation I83.12 Plantar fasciitis, right M72.2 Allergy desensitization therapy Z51.6 Additional Codes PHQ-9 - 11636 - PHQ-9 Billing: ([id number])
== END 2022-12-16 10:00 | disposition home or self-care (01) ==
PROVIDERS: Visit Provider Internal Medicine
DX: Z00.00 Encounter for general adult medical examination without abnormal findings (principal); I10 Essential (primary) hypertension; E78.00 Pure hypercholesterolemia, unspecified; R73.02 Impaired glucose tolerance (oral); I83.11 Varicose veins of right lower extremity with inflammation; I83.12 Varicose veins of left lower extremity with inflammation; M72.2 Plantar fascial fibromatosis; Z51.6 Encounter for desensitization to allergens; Z23 Encounter for immunization
CPT/HCPCS: 90471; 90686; 99397

== ENCOUNTER 2023-04-07 07:49 | Outpatient (REF) | payer MEDICARE, SELFPAY ==
[2023-04-07 08:04] LABS: MANUAL DIFF FLAG NO
--- NOTE | 2023-04-07 08:07 | ECG_ITS ---
Test Reason : essen. htn Blood Pressure : / mmHG Vent. Rate : 052 BPM Atrial Rate : 052 BPM P-R Int : 198 ms QRS Dur : 088 ms QT Int : 442 ms P-R-T Axes : 055 -34 011 degrees QTc Int : 411 ms Sinus bradycardia Left axis deviation Abnormal ECG No previous ECGs available Referred By: Micheal Rush Electronically Signed By:SARAH ALEXANDRE
[2023-04-07 09:03] LABS: Basophils Percent Auto 0.4 % (0-2); Eosinophils Absolute Auto 0.2 X10*3/uL (0.0-0.4); Eosinophils Percent Auto 3.7 % (0-4); Hematocrit 45.4 % (42.0-52.0); Hemoglobin 15.3 g/dl (14.0-18.0); Imm Gran Abs Auto 0.01 X10*3/uL (0.00-0.03); Imm Gran Pct Auto 0.2 % (0.0-0.4); Lymphocytes Absolute Auto 1.7 X10*3/uL (1.2-4.9); Lymphocytes Percent Auto 38.1 % (20-40); Mean Corpuscular HGB Conc 33.7 g/dl (31.0-36.0); Mean Corpuscular Hemoglobin 30.5 pg (27.0-33.0); Mean Corpuscular Volume 90.4 fL (80.0-98.0); Mean Platelet Volume 9.1 fL (9.4-12.4); Monocytes Absolute Auto 0.4 X10*3/uL (0.1-1.2); Monocytes Percent Auto 8.5 % (2-11); Neutrophils Absolute Auto 2.2 x10*3/uL (2.0-8.3); Neutrophils Percent Auto 49.1 % (45-73); Platelet Count 218 X10*3/uL (160-400); Red Blood Count 5.02 X10*6/uL (4.60-5.80); Red Cell Distribution Width 12.7 % (11.0-16.0); White Blood Count 4.6 X10*3/uL (4.8-10.8)
[2023-04-07 09:11] LABS: Estimated Average Glucose 97 mg/dL
[2023-04-07 09:37] LABS: Alanine Aminotransferase 19 U/L (0-40); Albumin Level 4.3 g/dL (3.5-5.0); Alkaline Phosphatase 79 U/L (39-117); Anion Gap 12 (12-20); Aspartate Amino Transferase 23 U/L (5-37); Bilirubin Total 0.9 mg/dL (0.0-1.0); Blood Urea Nitrogen 13 mg/dL (9-16); Calcium 9.5 mg/dL (8.4-10.2); Carbon Dioxide 27 mmol/L (22-29); Chloride 107 mmol/L (96-108); Cholesterol 166 mg/dL (<200); Estimated Glomerular Filt Rate > 60; Glucose Random 92 mg/dL (60-115); HDL Cholesterol 44 mg/dL (>40); LDL Cholesterol Calculated 102 mg/dL (<100); Potassium 4.6 mmol/L (3.3-5.1); Sodium 141 mmol/L (135-145); Triglycerides 102 mg/dL (<150)
[2023-04-07 09:56] LABS: Free T4 (Free Thyroxine) 0.87 ng/dL (0.71-1.85); Thyroid Stimulating Hormone 1.46 uIU/mL (0.32-4.0)
[2023-04-07 09:59] LABS: Folate 13.3 ng/mL (> or = 4.0); Prostate Specific Antigen Scr 0.44 ng/mL (<0.05-4.0); Vitamin B12 449 pg/mL (200-900)
== END 2023-04-07 07:50 | disposition home or self-care (01) ==
LOC: HO.LAB 07:49
PROVIDERS: Visit Provider Internal Medicine
DX: I10 Essential (primary) hypertension (principal); E78.00 Pure hypercholesterolemia, unspecified; R73.02 Impaired glucose tolerance (oral); Z12.5 Encounter for screening for malignant neoplasm of prostate
CPT/HCPCS: 36415; 80053; 80061; 82607; 82746; 83036; 84153; 84439; 84443; 85025; 93005

== ENCOUNTER → 2023-04-07 08:07 | Outpatient (BNV) | payer MEDICARE, SELFPAY | PROVIDERS: Visit Provider Internal Medicine | DX: I10 Essential (primary) hypertension (principal) | CPT/HCPCS: 93010 ==

== ENCOUNTER 2023-06-23 08:21 | Outpatient (AMB) | payer MEDICARE, SELFPAY ==
[2023-06-23 08:43] VITALS: BP 138/82; PULSE 57; O2SAT 98; BMI 25.3
--- NOTE | 2023-06-23 08:43 | MHC.PC.OV ---
Vital Signs 06/23/23 08:43 Height 6 ft 1 in Weight 192 lb BMI 25.3 BP 138/82 Blood Pressure Location Lt brachial Position Sitting Pulse 57 Pulse Source Pulse Oximeter Pulse Oximetry (%) 98 Oxygen Delivery Method Room Air Intake Visit Reasons: 6 month f/u Allergies losartan Allergy (Intermediate, Verified 06/23/23 08:47) cough lisinopril [LISINOPRIL] Allergy (Unknown, Verified 06/23/23 08:47) UNKNOWN penicillin G [Penicillin G] Allergy (Unknown, Verified 06/23/23 08:47) RASH,HIVES penicillin V Allergy (Unknown, Verified 06/23/23 08:47) Unknown tadalafil Adverse Reaction (Severe, Verified 06/23/23 08:47) Leg cramps Tobacco use date assessed: 06/23/23 Fall risk assessment: No Falls in past year Last assessed Fall Risk: 06/23/23 Dental Screening Dental Screen Date: 06/23/23 Did you have a dental visit in the last 12 months?: Yes Did you have a dental problem in the last 6 months where you did not have access to dental care?: No Was dental information given to patient?: Patient has dentist HPI 6 month f/u HPI Details 68-year-old male with hypertension, hypercholesterolemia impaired glucose tolerance peripheral vascular disease coming in for follow-up. Last seen for physical in December 2022 patient's colonoscopy is up-to-date April 2021. Patient also sees Rheumatology seen in January has osteoarthritis with multiple areas and had injections done proximal thumb for the right 1st CMC joint patient has been active playing golf has had plantar fasciitis and has had injections through the arthritis treatment center. No nausea no vomiting no chest pains no shortness a breath patient has seen Urology before and for the problem of Peyronie's and was prescribed tadalafil before and was asking for refill on this medication did call Urology but because he has not been seen for more than a couple of years did not refill the medication. [facility] Medical History (Updated 06/23/23 @ 08:47 by Micheal Rush MD) Varicose veins of left lower extremity with inflammation Encounter for abdominal aortic aneurysm (AAA) screening Left leg swelling Upper respiratory tract infection Right knee meniscal tear Pulmonary nodule Hemorrhoids GERD (gastroesophageal reflux disease) Tubular adenoma of colon Hearing impairment Anxiety Thrombophlebitis leg Knee osteoarthritis Hypercholesterolemia Hypertension Surgical History Status post ablation of incompetent vein using laser (08/28/21) History of knee replacement procedure of right knee S/P medial meniscectomy of right knee Hx of shoulder surgery History of vasectomy History of inguinal hernia repair Family History Father No problems noted. Mother Hypertension Paternal Grandmother Pancreatic cancer Social History (Updated 12/16/22 @ 09:41 by Micheal Rush MD) Housing: House Alcohol intake: current Alcohol intake frequency: holidays/special occasions only Patient Tobacco Use Status: Former Tobacco user Tobacco use type: Cigarette Years Smoked: 2012 quit e-Cigarette/Vaping Use: Never Used Second Hand Smoke Exposure: No Current occupational status: retired Cognitive needs: No Hearing needs: Yes Vision needs: Yes Questionnaire Thrive Questionnaire Date Thrive assessed: 06/23/23 I am a: Patient What is your living situation today?: I have a steady place to live Within the past 12 months, did the food you bought not last and you didn't have the money to get more?: Never true Within the past 12 months, did you worry whether your food would run out before you got money to buy more?: Never true Do you have trouble paying for medicines?: No Do you have trouble getting transportation to medical appointments?: No Do you have trouble paying your heating and electricity bill?: No Do you have trouble taking care of your child, family member or friend?: No Do you have trouble with day-to-day activities such as bathing, preparing meals, shopping, managing finances, etc.?: No Are you currently unemployed and looking for a job?: No Are you interested in more education?: No Please select the resources that you would like help with: None Currently or been in a relationship where the following occur: no concerns reported THRIVE Score: 0 AUDIT C Alcohol Use Questionnaire (AUDIT-C) 1. How often do you have a drink containing alcohol?: Monthly or less 2. How many drinks containing alcohol do you have on a typical day when you are drinking?: 1 or 2 3. How often do you have six or more drinks on one occasion?: Never Total Score: 1 SAMARA-7 AMB Questionnaire SAMARA-7 Date SAMARA - 7 assessed: 06/23/23 Source: Developed by Drs. Carloz Ca, Brooklynn Shukla, Dhaval Crawford and colleagues, with an educational brennan from [employer] Physical exam (Primary Care) Vital Signs: Last Vital Signs Pulse 57 06/23/23 08:43 BP 138/82 06/23/23 08:43 Pulse Ox 98 06/23/23 08:43 Oxygen Delivery Method Room Air 06/23/23 08:43 BMI result Body Mass Index 25.3 Tobacco/Smoking Status: Tobacco use Status Tobacco use date assessed 06/23/23 06/23/23 08:48 Patient Tobacco Use Status Former Tobacco user 06/23/23 08:48 Tobacco use type Cigarette 06/23/23 08:48 e-Cigarette/Vaping Use Never Used 06/23/23 08:48 Thrive Assessment: Date of Thrive Assessment Date Thrive assessed 06/23/23 06/23/23 08:48 Currently or been in a relationship where the following occur: no concerns reported Const General: alert; No acute distress Eyes Conjunctivae: conjunctivae normal Resp Auscultation: clear to auscultation bilaterally Cardio Rate: regular rate Rhythm: regular rhythm GI Inspection: Yes normal to inspection Extrem General: Yes normal to inspection and No edema Immunizations tetanus-diphtheria toxoids-Td 2 Lf unit-2 Lf unit/0.5 mL IM suspension Performing Provider: Micheal Rush MD Performing Location: [facility] Administered by: Jessica Swann CMA on 06/23/23 09:04 Dose Route Admin Location Dispensed Lot Number Expiration Date TNC Tray Delivery Aide 0.5 mL IM Left Deltoid 0.5 mL [id number] 03/19/24 [address]-7 [employer] VIS Given Date VIS Provided VIS Publication Date 06/23/23 Single Vaccine 20 Eligibility Eligibility Date Funding Source Not [facility] Eligible 06/23/23 State funds Assessment and Plan Assessment & Plan (1) Hypertension: Code(s): I10 - Essential (primary) hypertension Qualifiers: Hypertension type: essential hypertension Qualified Code(s): I10 - Essential (primary) hypertension Plan: Continue with blood pressure medication. Decrease salt intake and exercise patient takes metoprolol 25 mg once a day. EKG done showing sinus bradycardia but with left axis deviation. Discussed with the patient on ordering for echocardiogram. (2) Hypercholesterolemia: Code(s): E78.00 - Pure hypercholesterolemia, unspecified Plan: Avoid fried foods, chicken skin, eggs, butter margarine, pastries and meat. Be it pork or beef they have a lot of cholesterol on simvastatin 20 mg once a day (3) Impaired glucose tolerance: Code(s): R73.02 - Impaired glucose tolerance (oral) Plan: Decrease the amount of carbohydrate intake, pasta, bread, rice and potatoes are all sugar and that is aside from all the sweet stuff, remember that fruits are good but they are Sweet also. (4) Peripheral vascular disease: Code(s): I73.9 - Peripheral vascular disease, unspecified Plan: When sitting down elevate the legs, exercise, and support stockings (5) Peyronie disease: Code(s): N48.6 - Induration penis plastica Plan: Tadalafil prescription sent in Orders: Orders CA echo transthoracic complete Today I10 - Essential (primary) hypertension Coding Level of Care Code Est Pt Level 4 (33848) Diagnoses Essential hypertension I10 Hypertension type: essential hypertension Hypercholesterolemia E78.00 Impaired glucose tolerance R73.02 Peripheral vascular disease I73.9 Peyronie disease N48.6
== END 2023-06-23 09:13 | disposition home or self-care (01) ==
PROVIDERS: PCP Internal Medicine; Visit Provider Internal Medicine
DX: I10 Essential (primary) hypertension (principal); E78.00 Pure hypercholesterolemia, unspecified; R73.02 Impaired glucose tolerance (oral); I73.9 Peripheral vascular disease, unspecified; N48.6 Induration penis plastica; Z23 Encounter for immunization
CPT/HCPCS: 90471; 90714; 99214

== ENCOUNTER → 2023-07-14 14:55 | Outpatient (REF) | payer MEDICARE, SELFPAY ==
--- NOTE | 2023-07-14 14:59 | CA_ITS ---
Transthoracic Echocardiogram Patient (Last, First, Middle): Tyler Jerry, Gender: Male Date of : 1955 Age: 68 Procedure Date: 07/14/2023 Procedure Type: Transthoracic Echocardiogram Location: OP Height: 185.42 cm Weight: 87.09 kg BSA: 2.11 m2 Heart Rate: 53 bpm BP: 136 / 82 mmHg Compliance Reviewer: TENA Referring MD: Micheal Rush MD Development Trainer: Jones Roy MD Symptoms: I10 - Essential (primary) hypertension Study Quality: Adequate ECG Rhythm: Bradycardia Conclusions: - Essentially normal study Findings Left Ventricle Normal left ventricular size, thickness, and systolic function. The visually estimated ejection fraction is between 55-60%. Spectral Doppler is indicative of a normal filling pattern. Peak GLS is -19.6%, within normal limits. Right Ventricle Normal right ventricular cavity size and systolic function. Atria The left atrium is normal in size. There is no evidence of interatrial shunt. The right atrium is normal in size. Aortic Valve There is mild calcification of the aortic valve. There is mild thickening of the aortic valve. There is no aortic valve stenosis. There is no aortic valve regurgitation. Mitral Valve Normal mitral valve structure and function. There is trace mitral valve regurgitation. There is no mitral valve stenosis. Pulmonic Valve The pulmonic valve is likely normal. Tricuspid Valve Normal tricuspid valve structure. Tricuspid regurgitation envelope is inadequate for calculation of right ventricular systolic pressure. Normal right atrial pressure. Great Vessels The pulmonary artery was not well visualized. There is no dilatation of the ascending aorta measuring 3.30 cm. Venous The inferior vena cava is normal in size and collapses greater than 50% with inspiration. Pericardium/Pleural There is no evidence of pericardial effusion. Prior Study Comparison No prior study available for comparison. Measurements 2D Linear Measurements IVSd: 1.16 0.6-0.9/0.6-1.0 cm LVIDd: 4.77 3.9-5.3/4.2-5.9 cm LVIDd Index: 2.26 2.4-3.2/2.2-3.1 cm/m2 LVIDs: 3.32 2.0-3.6 cm LVPWd: 0.86 0.7-1.1 cm LA Diam: 3.60 2.7-3.8/3.0-4.0 cm LAIDs Index: 1.71 1.5-2.3 cm/m2 LV Mass: 211.98 67-162/88-224 g LV Mass Index: 100.46 43-95/49-115 g/m2 LVOT Diam: 2.50 3.0+(-)1.3 cm 2D Systolic Function EF 4C: 57.00 >55% EF 2C: 55.90 >55% EF BiP: 55.80 >55% Mitral Valve MV Pk E: 0.63 MV PK A: 0.73 MV Decel Time: 214.00 E/A: 0.90 E'Lateral: 9.46 E'Medial: 7.40 E/E' Med: 8.50 E/E' Lat: 6.60 PHT: 63.00 MVA PHT: 3.49 Decel [place]: 2.92 Aortic Valve AoV Pk Narinder: 1.24 AoV Pk Grad: 6.00 TRUPTI: 3.53 LVOT LVOT Pk Narinder: 0.98 LVOT Mn Narinder: 0.66 LVOT VTI: 0.22 LVOT Pk Grad: 4.00 LVOT Mn Grad: 2.00 LVOT Diam: 2.50 LVOT Area: 4.91 Diastolic Function MV Pk E: 0.63 MV Pk A: 0.73 E/A: 0.90 E'Medial: 7.40 E/E' Med: 8.50 E' Laterial: 9.46 E/E' Lat: 6.60 Right Ventricle TAPSE (mm): 21.00 TVS' Narinder: 9.00 Tricuspid Valve RA Press: 3.00 Great Vessels Aorta Sinus of Valsalva: 3.70 2.0-3.5 cm Ao Asc: 3.30 2.1-3.4 cm Pulmonary Veins Pulm Vein S/D 1.20 Pulmonary Valve PV Pk Narinder: 1.06 Peak PV Grad: 4.00 HI Pk Narinder: 2.26 Updated in Other Vendor System with Status of Final Jones Roy MD electronically signed on 07/14/2023 5:11:10 PM with status of Final
== END ==
LOC: HO.CARD 14:55
PROVIDERS: PCP Internal Medicine; Visit Provider Internal Medicine
DX: I10 Essential (primary) hypertension (principal)
CPT/HCPCS: 93306; 93356

== ENCOUNTER → 2023-07-14 14:59 | Outpatient (BNV) | payer MEDICARE, SELFPAY | PROVIDERS: PCP Internal Medicine; Visit Provider Internal Medicine Cardiovascular Disease | DX: I35.8 Other nonrheumatic aortic valve disorders (principal) | CPT/HCPCS: 93306; 93356 ==

== ENCOUNTER 2023-10-11 08:56 | Outpatient (AMB) | payer MEDICARE, SELFPAY ==
--- NOTE | 2023-10-11 08:58 | MHC.OFFVIS ---
Intake Visit Reasons: follow up PRN LE swelling s/p ablation Intake Note: Patient has complaints of left ankle swelling that is on and off . Right leg is ok. Bilateral foot pain always . Allergies losartan Allergy (Intermediate, Verified 10/11/23 09:00) cough lisinopril [LISINOPRIL] Allergy (Unknown, Verified 10/11/23 09:00) UNKNOWN penicillin G [Penicillin G] Allergy (Unknown, Verified 10/11/23 09:00) RASH,HIVES penicillin V Allergy (Unknown, Verified 10/11/23 09:00) Unknown tadalafil Adverse Reaction (Severe, Verified 10/11/23 09:00) Leg cramps HPI HPI follow up PRN LE swelling s/p ablation: Details: Very pleasant 68-year-old gentleman presents for follow-up regarding venous disease. He had actually undergone bilateral great saphenous vein ablation is. He reports postprocedure he had been doing fairly well and he has had increased swelling of the left lower extremity. He states that it has been affecting his daily activities in particular his golf. He now presents for routine follow-up venous exam. He is concerned most about this left ankle and calf swelling. [facility] Medical History Varicose veins of left lower extremity with inflammation Encounter for abdominal aortic aneurysm (AAA) screening Left leg swelling Upper respiratory tract infection Right knee meniscal tear Pulmonary nodule Hemorrhoids GERD (gastroesophageal reflux disease) Tubular adenoma of colon Hearing impairment Anxiety Thrombophlebitis leg Knee osteoarthritis Hypercholesterolemia Hypertension Surgical History Status post ablation of incompetent vein using laser (08/28/21) History of knee replacement procedure of right knee S/P medial meniscectomy of right knee Hx of shoulder surgery History of vasectomy History of inguinal hernia repair Family History Father No problems noted. Mother Hypertension Paternal Grandmother Pancreatic cancer Social History Housing: House Alcohol intake: current Alcohol intake frequency: holidays/special occasions only Patient Tobacco Use Status: Former Tobacco user Tobacco use type: Cigarette Years Smoked: 2011 quit e-Cigarette/Vaping Use: Never Used Second Hand Smoke Exposure: No Current occupational status: retired Cognitive needs: No Hearing needs: Yes Vision needs: Yes Review of Systems Const Reports as per HPI ENT Reports no additional complaints Card Denies chest pain, Denies chest pain at rest and Denies chest pain with activity Resp Denies chest congestion and Denies cough GI Reports no additional complaints Musc Details: pain over varicosities, aching of lower extremities, swelling, cramping, heaviness and tiredness, itching Denies abnormal gait Skin/Breast Reports pruritus and Denies wounds Neuro Reports no additional complaints and Denies abnormal gait Psych Denies no additional complaints Physical Exam Const General: cooperative, healthy appearing and comfortable Orientation/consciousness: oriented to person, oriented to place and oriented to time Neck Carotids: no bruits Chest Chest palpation & inspection: normal inspection of the chest and normal palpation of entire chest wall Resp Effort & Inspection: normal respiratory effort and able to speak in complete sentences Cardio Rate: regular rate Heart sounds: S1 normal heart sound present and S2 normal heart sound present Peripheral pulses: Peripheral pulses 2+ throughout GI Inspection: Yes normal to inspection Skin Other: +2 edema, left greater than right CEAP Classification C4 - skin color changes Ep - Etiology Primary As - superficial veins P - reflux General skin exam: dry skin Neuro General: oriented to person, oriented to place and oriented to time Extrem Right lower extremity: full ROM, normal capillary refill and edema Left lower extremity: full ROM, normal capillary refill and edema Psych Mental Status: mental status grossly normal Assessment & Plan Assessment & Plan (1) Varicose veins of left lower extremity with inflammation: Comment: 08/28/2021 - left great saphenous vein Cyanoacralate ablation Code(s): I83.12 - Varicose veins of left lower extremity with inflammation Category: Medical Plan: In short patient has had prior left great saphenous vein ablation. I did explain to him that his swelling may be multifactorial. I am happy to repeat left lower extremity testing to rule out any additional venous insufficiency in to see the status of the prior ablation. We did discuss routine conservative measures including compression, elevation, and exercise. He will follow up with us after testing. Thank you for allowing us to assist in his care. If there are any questions or concerns please do not hesitate to contact us. (2) Varicose veins of right lower extremity with inflammation: Comment: 06/11/2022- right great saphenous vein Cyanoacralate ablation Code(s): I83.11 - Varicose veins of right lower extremity with inflammation Category: Medical Plan: See above Orders: Orders US venous duplex LE LT 1 Week I83.12 - Varicose veins of left lower extremity with inflammation Coding Level of Care Code Est Pt Level 4 (61077) Diagnoses Varicose veins of left lower extremity with inflammation I83.12 Varicose veins of right lower extremity with inflammation I83.11
== END 2023-10-11 09:24 | disposition home or self-care (01) ==
PROVIDERS: PCP Internal Medicine; Visit Provider Surgery Vascular Surgery
DX: I83.12 Varicose veins of left lower extremity with inflammation (principal); I83.11 Varicose veins of right lower extremity with inflammation
CPT/HCPCS: 99213

== ENCOUNTER → 2023-10-11 08:56 | Outpatient (BNVA) | payer MEDICARE, SELFPAY | PROVIDERS: PCP Internal Medicine; Visit Provider Surgery Vascular Surgery | DX: I83.12 Varicose veins of left lower extremity with inflammation (principal); I83.11 Varicose veins of right lower extremity with inflammation | CPT/HCPCS: 99212 ==

== ENCOUNTER 2023-10-27 08:14 | Outpatient (REF) | payer MEDICARE, SELFPAY ==
--- NOTE | ~2023-10-27 | US_ITS ---
EXAMINATION: US LOWER EXTREMITY VENOUS (REFLUX EXAM), LEFT CLINICAL INDICATION: Varicose veins of left lower extremity COMPARISON: Venous duplex ultrasound of the left lower extremity dated 08/31/2021 TECHNIQUE: Color flow triplex imaging and compression Doppler was performed to evaluate both the deep and the superficial systems bilaterally. To evaluate the superficial system, the examination was performed in the upright position. Color-flow Doppler ultrasound and compression ultrasound were utilized. In addition, maneuvers were utilized to demonstrate reflux. FINDINGS: DEEP VENOUS ULTRASOUND OF THE LEFT LOWER EXTREMITY: Common Femoral Vein: Compressible, normal respiratory variation and augmented flow. Femoral Vein: Compressible, normal color flow and augmentation. Popliteal Vein: Compressible, normal augmentation. Deep Reflux: There is no evidence of reflux in the deep system in either the common femoral vein, superficial femoral or the popliteal vein. There is no evidence of a Rod's cyst. SUPERFICIAL ULTRASOUND WITH DOPPLER OF LEFT LOWER EXTREMITY: GREAT SAPHENOUS VEIN: Saphenofemoral Junction: 0.8 cm; Reflux: 0 ms The left great saphenous vein is not visualized from the proximal thigh to the knee. There is a short segment of reconstitution at the level of the proximal calf that terminates into a few small varicose veins. Below Knee: 0.3 cm; Reflux: 848 ms The distal right great saphenous vein is occluded from the mid calf to the ankle. SMALL SAPHENOUS VEIN: Saphenopopliteal Junction: 0.3 cm; Reflux: 0 ms Proximal: 0.3 cm; Reflux: 1492 ms Distal: 0.3 cm; Reflux: 0 ms PERFORATORS: Location: Distal SSV Size: 0.2; Reflux: 0 ms Location: Medial mid thigh Size: 0.4; Reflux: 0 ms Location: Medial mid thigh 61 cm from him Size: 0.5; Reflux: 688 ms Location: Medial mid thigh Size: 0.2; Reflux: 0 ms Location: Medial mid thigh 61 cm from heel Size: 0.3; Reflux: 664 ms VARICOSITIES: Location: Mid thigh off femoral vein Size: 0.7; Reflux: 0 ms Location: Mid thigh off femoral vein Size: 0.5; Reflux: 0 ms US/US venous duplex LE LT IMPRESSION: 1. No evidence of deep venous thrombosis or reflux in the left lower extremity. 2. Status post ablation of the left great saphenous vein with a small segment of reconstitution at the level of the proximal calf, which terminates into a few small varicosities, followed by occlusion of the distal segment. 3. Segmental incompetence of the left small saphenous vein at the level of the mid calf with reflux up to 1492 ms. 4. Multiple perforators in the left medial mid thigh at the site of tenderness. Electronically signed by: Maribel Tate MD 11/02/2023 10:40 AM EDT
== END 2023-10-27 08:15 | disposition home or self-care (01) ==
LOC: HO.US 08:14
PROVIDERS: PCP Internal Medicine; Visit Provider Surgery Vascular Surgery
DX: I83.12 Varicose veins of left lower extremity with inflammation (principal)
CPT/HCPCS: 93971

== ENCOUNTER 2023-11-24 10:55 | Outpatient (AMB) | payer MEDICARE, SELFPAY ==
[2023-11-24 11:00] VITALS: BMI 25.3
--- NOTE | 2023-11-24 11:00 | MHC.OFFVIS ---
Vital Signs 11/24/23 11:00 Height 6 ft 1 in Weight 192 lb BMI 25.3 Intake Visit Reasons: follow up s/p 10/27/23 Intake Note: follow up 10/27/23 for Left LE swelling. Pt states worse in the warmer months but still gets swelling. Pt is on his feet often golfing. Accompanied by: Self / Same As Patient Allergies losartan Allergy (Intermediate, Verified 11/24/23 11:02) cough lisinopril [LISINOPRIL] Allergy (Unknown, Verified 11/24/23 11:02) UNKNOWN penicillin G [Penicillin G] Allergy (Unknown, Verified 11/24/23 11:02) RASH,HIVES penicillin V Allergy (Unknown, Verified 11/24/23 11:02) Unknown tadalafil Adverse Reaction (Severe, Verified 11/24/23 11:02) Leg cramps HPI HPI follow up s/p 10/27/23: Details: Very pleasant 68-year-old gentleman presents for for follow-up evaluation regarding left lower extremity swelling. He has had prior venous procedures on the right and left great saphenous vein. He noticed more left ankle and calf swelling. He now presents for routine follow-up [facility] Medical History Varicose veins of left lower extremity with inflammation Encounter for abdominal aortic aneurysm (AAA) screening Left leg swelling Upper respiratory tract infection Right knee meniscal tear Pulmonary nodule Hemorrhoids GERD (gastroesophageal reflux disease) Tubular adenoma of colon Hearing impairment Anxiety Thrombophlebitis leg Knee osteoarthritis Hypercholesterolemia Hypertension Surgical History Status post ablation of incompetent vein using laser (08/28/21) History of knee replacement procedure of right knee S/P medial meniscectomy of right knee Hx of shoulder surgery History of vasectomy History of inguinal hernia repair Family History Father No problems noted. Mother Hypertension Paternal Grandmother Pancreatic cancer Social History Housing: House Alcohol intake: current Alcohol intake frequency: holidays/special occasions only Patient Tobacco Use Status: Former Tobacco user Tobacco use type: Cigarette Years Smoked: 2011 quit e-Cigarette/Vaping Use: Never Used Second Hand Smoke Exposure: No Current occupational status: retired Cognitive needs: No Hearing needs: Yes Vision needs: Yes Review of Systems Const Reports as per HPI ENT Reports no additional complaints Card Denies chest pain, Denies chest pain at rest and Denies chest pain with activity Resp Denies chest congestion and Denies cough GI Reports no additional complaints Musc Details: pain over varicosities, aching of lower extremities, swelling, cramping, heaviness and tiredness, itching Denies abnormal gait Skin/Breast Reports pruritus and Denies wounds Neuro Reports no additional complaints and Denies abnormal gait Psych Denies no additional complaints Physical Exam Vital Signs: BMI result Body Mass Index 25.3 Const General: cooperative, healthy appearing and comfortable Orientation/consciousness: oriented to person, oriented to place and oriented to time Neck Carotids: no bruits Chest Chest palpation & inspection: normal inspection of the chest and normal palpation of entire chest wall Resp Effort & Inspection: normal respiratory effort and able to speak in complete sentences Cardio Rate: regular rate Heart sounds: S1 normal heart sound present and S2 normal heart sound present Peripheral pulses: Peripheral pulses 2+ throughout GI Inspection: Yes normal to inspection Skin Other: +2 edema, CEAP Classification C4 - skin color changes Ep - Etiology Primary As - superficial veins P - reflux General skin exam: dry skin Neuro General: oriented to person, oriented to place and oriented to time Extrem Right lower extremity: full ROM, normal capillary refill and edema Left lower extremity: full ROM, normal capillary refill and edema Psych Mental Status: mental status grossly normal Results Reviewed Results Reviewed: Brief summary of venous insufficiency testing is as follows: left great saphenous vein: Ablated left small saphenous vein: Positive left accessory vein: none present Please note there is no evidence of any venous aneurysms or significant tortuosity Assessment & Plan Assessment & Plan (1) Varicose veins of left lower extremity with inflammation: Comment: 08/28/2021 - left great saphenous vein Cyanoacralate ablation Code(s): I83.12 - Varicose veins of left lower extremity with inflammation Category: Medical Plan: This patient has varicose veins with inflammation. They continue to be a source of discomfort for the patient. The patient has tried conservative treatment with compression, leg elevation and exercise program for over 3 months time. They have been compliant with all treatment. This has provided minimal relief for the patient. I do not anticipate this course of treatment will alter the underlying etiology. The patient has been scheduled for lower extremity venous treatment inclusive of --- left small saphenous vein radiofrequency ablation. Risks, benefits, and complications of this procedure has been discussed in detail with the patient including but not limited to bleeding, infection, and the development of a DVT. The patient has demonstrated a clear understanding and has consented. We will schedule the patient as soon as possible. Thank you for allowing us to participate in this patient's care. If there are any questions or concerns please do not hesitate to contact us. (2) Varicose veins of right lower extremity with inflammation: Comment: 06/11/2022- right great saphenous vein Cyanoacralate ablation Code(s): I83.11 - Varicose veins of right lower extremity with inflammation Category: Medical Plan: See above Coding Level of Care Code Est Pt Level 4 (10428) Diagnoses Varicose veins of left lower extremity with inflammation I83.12 Varicose veins of right lower extremity with inflammation I83.11
== END 2023-11-24 11:23 | disposition home or self-care (01) ==
PROVIDERS: PCP Internal Medicine; Visit Provider Surgery Vascular Surgery
DX: I83.12 Varicose veins of left lower extremity with inflammation (principal); I83.11 Varicose veins of right lower extremity with inflammation
CPT/HCPCS: 99214

== ENCOUNTER → 2023-11-24 10:55 | Outpatient (BNVA) | payer MEDICARE, SELFPAY | PROVIDERS: PCP Internal Medicine; Visit Provider Surgery Vascular Surgery | DX: I83.12 Varicose veins of left lower extremity with inflammation (principal); I83.11 Varicose veins of right lower extremity with inflammation | CPT/HCPCS: 99212 ==

== ENCOUNTER 2023-12-12 08:06 | Outpatient (REF) | payer MEDICARE, SELFPAY ==
[2023-12-12 08:21] LABS: MANUAL DIFF FLAG NO
[2023-12-12 09:52] LABS: Basophils Percent Auto 0.4 % (0-2); Eosinophils Absolute Auto 0.2 X10*3/uL (0.0-0.4); Eosinophils Percent Auto 3.5 % (0-4); Hematocrit 48.7 % (42.0-52.0); Hemoglobin 16.2 g/dl (14.0-18.0); Imm Gran Abs Auto 0.02 X10*3/uL (0.00-0.03); Imm Gran Pct Auto 0.4 % (0.0-0.4); Lymphocytes Absolute Auto 2.2 X10*3/uL (1.2-4.9); Lymphocytes Percent Auto 42.3 % (20-40); Mean Corpuscular HGB Conc 33.3 g/dl (31.0-36.0); Mean Corpuscular Hemoglobin 30.3 pg (27.0-33.0); Mean Corpuscular Volume 91.2 fL (80.0-98.0); Mean Platelet Volume 9.3 fL (9.4-12.4); Monocytes Absolute Auto 0.4 X10*3/uL (0.1-1.2); Monocytes Percent Auto 7.8 % (2-11); Neutrophils Absolute Auto 2.3 x10*3/uL (2.0-8.3); Neutrophils Percent Auto 45.6 % (45-73); Platelet Count 253 X10*3/uL (160-400); Red Blood Count 5.34 X10*6/uL (4.60-5.80); Red Cell Distribution Width 12.7 % (11.0-16.0); White Blood Count 5.1 X10*3/uL (4.8-10.8)
[2023-12-12 10:14] LABS: Estimated Average Glucose 103 mg/dL; Hemoglobin A1C 135.1572 umol/L; Hemoglobin A1c % 5.2 % (<6.0); Total Hemoglobin (HGBA1C) 4017.8851 umol/L
[2023-12-12 11:10] LABS: Alanine Aminotransferase 27 U/L (0-40); Albumin Level 4.2 g/dL (3.5-5.0); Alkaline Phosphatase 85 U/L (39-117); Anion Gap 13 (12-20); Aspartate Amino Transferase 28 U/L (5-37); Bilirubin Total 0.9 mg/dL (0.0-1.0); Blood Urea Nitrogen 17 mg/dL (9-16); Calcium 9.8 mg/dL (8.4-10.2); Carbon Dioxide 26 mmol/L (22-29); Chloride 107 mmol/L (96-108); Cholesterol 178 mg/dL (<200); Estimated Glomerular Filt Rate > 60; Free T4 (Free Thyroxine) 0.83 ng/dL (0.71-1.85); Glucose Random 91 mg/dL (60-115); HDL Cholesterol 40 mg/dL (>40); LDL Cholesterol Calculated 110 mg/dL (<100); Potassium 4.8 mmol/L (3.3-5.1); Sodium 141 mmol/L (135-145); Thyroid Stimulating Hormone 1.41 uIU/mL (0.32-4.0); Triglycerides 144 mg/dL (<150)
[2023-12-12 11:28] LABS: Folate 14.9 ng/mL (> or = 4.0); Prostate Specific Antigen Scr 0.47 ng/mL (<0.05-4.0); Vitamin B12 443 pg/mL (200-900)
== END 2023-12-12 08:07 | disposition home or self-care (01) ==
LOC: HO.LAB 08:06
PROVIDERS: PCP Internal Medicine; Visit Provider Internal Medicine
DX: R73.02 Impaired glucose tolerance (oral) (principal); E78.00 Pure hypercholesterolemia, unspecified; Z12.5 Encounter for screening for malignant neoplasm of prostate
CPT/HCPCS: 36415; 80053; 80061; 82607; 82746; 83036; 84153; 84439; 84443; 85025

== ENCOUNTER 2023-12-26 08:39 | Outpatient (AMB) | payer MEDICARE, SELFPAY ==
[2023-12-26 08:41] VITALS: BP 132/90; PULSE 79; O2SAT 95; BMI 26.1
--- NOTE | 2023-12-26 08:41 | A.OFFPC_ITS ---
Vital Signs 12/26/23 08:41 Height 6 ft 1 in Weight 198 lb BMI 26.1 BP 132/90 H Blood Pressure Location Lt brachial Position Sitting Pulse 79 Pulse Source Pulse Oximeter Pulse Oximetry (%) 95 Oxygen Delivery Method Room Air Intake Visit Reasons: annual exam Manager Administration Required: No Allergies losartan Allergy (Intermediate, Verified 12/26/23 09:02) cough lisinopril [LISINOPRIL] Allergy (Unknown, Verified 12/26/23 09:02) UNKNOWN penicillin G [Penicillin G] Allergy (Unknown, Verified 12/26/23 09:02) RASH,HIVES penicillin V Allergy (Unknown, Verified 12/26/23 09:02) Unknown tadalafil Adverse Reaction (Severe, Verified 12/26/23 09:02) Leg cramps Medication List - Last Reconciled 12/26/23 by Phyllis hCowdhury PA-C albuterol sulfate 90 mcg/actuation 1 inh inhalation Q4-6H PRN B-complex with vitamin C 1 cap PO DAILY cholecalciferol (vitamin D3) 25 mcg PO DAILY ketotifen fumarate 0.025%(0.035%) ([place]) 1 drp ophthalmic (eye) Q12H loratadine (Claritin) 10 mg PO DAILY metoprolol succinate ER 25 mg PO DAILY 90 days simvastatin 20 mg PO BEDTIME tadalafil 5 mg PO DAILY PRN 90 days Tobacco use date assessed: 12/26/23 Fall risk assessment: No Falls in past year Last assessed Fall Risk: 12/26/23 Dental Screening Dental Screen Date: 12/26/23 Did you have a dental visit in the last 12 months?: Yes Did you have a dental problem in the last 6 months where you did not have access to dental care?: No Was dental information given to patient?: Patient has dentist HPI annual exam HPI Details 68-year-old male with hypertension, hype rcholesterolemia, impaired glucose tolerance, peripheral vascular disease last seen by Dr. Rush june 2023 coming in for annual exam. In review of the notes, patient was seen by vascular surgery 11/24/2023 scheduled for lower extremity venous ablation.?Patient was also seen by arthritis treatment center advised to continue on current medication and follow up as needed. Patient presenting with concerns today, notably pain and swelling in the left ankle due to venous insufficiency. He has a history of undergoing procedures to seal veins in both lower limbs, with another procedure scheduled for the following month. He experiences exacerbation of symptoms with prolonged walking, especially notable after a recent cruise to [facility], where the symptoms intensified. The patient also reports osteoarthritis affecting the toes and dorsal regions of the feet, receiving regular care at an arthritis treatment center. Interestingly, injections have been offered but declined as they are not advised for the current condition of the top of the feet; management includes the use of naproxen-based Voltaren gel, which provides intermittent relief. Despite recent weight gain attributed to dietary indulgence during travels, the patient maintains a stable blood sugar level with an A1c of 5.2%, negating any diabetes diagnosis. His past colorectal screening revealed a tubular adenoma, yet follow-up is not mandated for another few years. [facility] Medical History Varicose veins of left lower extremity with inflammation Encounter for abdominal aortic aneurysm (AAA) screening Left leg swelling Upper respiratory tract infection Right knee meniscal tear Pulmonary nodule Hemorrhoids GERD (gastroesophageal reflux disease) Tubular adenoma of colon Hearing impairment Anxiety Thrombophlebitis leg Knee osteoarthritis Hypercholesterolemia Hypertension Surgical History Status post ablation of incompetent vein using laser (08/28/21) History of knee replacement procedure of right knee S/P medial meniscectomy of right knee Hx of shoulder surgery History of vasectomy History of inguinal hernia repair Family History Father No problems noted. Mother Hypertension Paternal Grandmother Pancreatic cancer Social History Housing: House Alcohol intake: current Alcohol intake frequency: holidays/special occasions only Patient Tobacco Use Status: Former Tobacco user Tobacco use type: Cigarette Years Smoked: 2011 quit e-Cigarette/Vaping Use: Never Used Second Hand Smoke Exposure: No Current occupational status: retired Cognitive needs: No Hearing needs: Yes Vision needs: Yes Questionnaire PHQ-9 Over the last 2 weeks, how often have you been bothered by any of the following problems? 1. Little interest or pleasure in doing things: not at all 2. Feeling down, depressed, or hopeless: not at all 3. Trouble falling or staying asleep, or sleeping too much: not at all 4. Feeling tired or having little energy: not at all 5. Poor appetite or overeating: not at all 6. Feeling bad about yourself - or that you are a failure or have let yourself or your family down: not at all 7. Trouble concentrating on things, such as reading the newspaper or watching television: not at all 8. Moving or speaking so slowly that other people could have noticed. Or the opposite - being so fidgety or restless that you have been moving around a lot m ore than usual: not at all 9. Thoughts that you would be better off or of hurting yourself in some way: not at all Total score: 0 Depression Screening Interpretation: Negative Depression Screening Done: Yes Source: Developed by Drs. Carloz Ca, Brooklynn Shukla, Dhaval Crawford and colleagues, with an educational brennan from [employer]. Thrive Questionnaire Date Thrive assessed: 06/23/23 I am a: Patient What is your living situation today?: I have a steady place to live Within the past 12 months, did the food you bought not last and you didn't have the money to get more?: Never true Within the past 12 months, did you worry whether your food would run out before you got money to buy more?: Never true Do you have trouble paying for medicines?: No Do you have trouble getting transportation to medical appointments?: No Do you have trouble paying your heating and electricity bill?: No Do you have trouble taking care of your child, family member or friend?: No Do you have trouble with day-to-day activities such as bathing, preparing meals, shopping, managing finances, etc.?: No Are you currently unemployed and looking for a job?: No Are you interested in more education?: No Please select the resources that you would like help with: None Currently or been in a relationship where the following occur: No concerns reported THRIVE Score: 0 AUDIT C Alcohol Use Questionnaire (AUDIT-C) 1. How often do you have a drink containing alcohol?: 2-3 times a week 2. How many drinks containing alcohol do you have on a typical day when you are drinking?: 1 or 2 3. How often do you have six or more drinks on one occasion?: Never Total Score: 3 SAMARA-7 AMB Questionnaire SAMARA-7 Date SAMARA - 7 assessed: 12/26/23 Feeling nervous, anxious, or on edge: 0 = Not at all Not being able to stop or control worryin = Not at all Worrying too much about different things: 0 = Not at all Trouble relaxin = Not at all Being so restless that it is hard to sit still: 0 = Not at all Becoming easily annoyed or irritable: 0 = Not at all Feeling afraid as if something awful might happen: 0 = Not at all Total SAMARA-7 score (0-4 normal; 5-9 mild; 10-14 moderate; 15-21 severe): 0 Source: Developed by Drs. Carloz Ca, Brooklynn Shukla, Dhaval Crawford and colleagues, with an educational brennan from [employer]. SAMARA-7 Assessment Billing SAMARA-7 Assessment Tool: SAMARA-7 Assessment 83866 Review of Systems Const Denies body aches, Denies fatigue, Denies fever(s), Denies frequent falls, Denies headache(s) and Denies weakness Eyes Reports no additional complaints and Denies change in vision ENT Denies dysphagia, Denies dizziness, Denies facial pain, Denies headache(s), Denies nasal congestion and Denies odynophagia Card Denies chest pain, Denies syncope, Denies irregular heart rhythm, Denies leg edema, Denies lightheadedness and Denies dyspnea Resp Denies cough and Denies dyspnea GI Denies abdominal pain, Denies constipation, Denies dysphagia, Denies dyspepsia, Denies diarrhea, Denies nausea, Denies odynophagia and Denies vomiting Denies dysuria, Denies urinary frequency, Denies urinary hesitancy and Denies urinary urgency Musc Denies back pain and Denies myalgias Skin/Breast Reports system reviewed and no additional complaints, except as documented Neuro Denies dizziness, Denies syncope, Denies frequent falls, Denies headache(s) and Denies weakness Psych Reports no additional complaints Endo Denies fatigue Physical exam (Primary Care) Vital Signs: Oxygen Delivery Method Room Air 12/26/23 08:41 Tobacco/Smoking Status: Tobacco use Status Tobacco use date assessed 06/23/23 06/23/23 08:48 Patient Tobacco Use Status Former Tobacco user 06/23/23 08:48 Tobacco use type Cigarette 06/23/23 08:48 e-Cigarette/Vaping Use Never Used 06/23/23 08:48 Depression Screening Interpretation: Negative Thrive Assessment: Date of Thrive Assessment Date Thrive assessed 06/23/23 06/23/23 08:48 Currently or been in a relationship where the following occur: No concerns reported Const General: cooperative, healthy appearing, comfortable and no acute distress Orientation/consciousness: patient oriented x3 HENMT Head: Yes normocephalic Ears: hearing grossly normal bilaterally, external ears normal, TM's normal bilaterally and EAC's normal General nose exam: Normal external nose present Face and sinus: Yes normal facial exam and Yes sinuses nontender Mouth: Normal oral and palatal mucosa present and tongue normal Throat: Yes posterior oropharynx normal Eyes General: appearance normal, both eyes and all related structures Conjunctivae: conjunctivae normal Pupils: Equal, round and reactive pupils present EOM: EOMs intact bilaterally and No Nystagmus present Neck Neck: Yes normal visual inspection, Yes full ROM and Yes no lymphadenopathy Chest Chest palpation & inspection: normal inspection of the chest Resp Effort & Inspection: normal respiratory effort Auscultation: clear to auscultation bilaterally, no crackles, no rales, no rhonchi, no wheezes and breath sounds present Cardio Rate: regular rate Rhythm: regular rhythm Peripheral pulses: radial pulses present and dorsalis pedis present GI Inspection: Yes normal to inspection and No Abdominal wall edema Palpation (GI): Soft to palpation, not firm and nontender Auscultation: normal bowel sounds Rectal Exam - Male: Yes deferred General: Yes no CVA tenderness Back/Spine/Pelvis Back: no CVA tenderness Skin General skin exam: no rashes or lesions noted Neuro General: patient oriented x3 Cranial nerves: Yes Equal, round and reactive pupils present, Yes Midline tongue present, Yes Ability to bilaterally elevate shoulders present and No Nystagmus present Gait exam (Neuro): Normal gait present Extrem Other: Nonpitting edema of left ankle. General: Yes normal to inspection, Yes full ROM, No no pedal edema and No edema Psych Speech and movement: Normal speech and movement present Affect: normal affect Insight: Good insight present (Psych) Judgement: Good judgement present (Psych) Coding Level of Care Code Est Pt Prev Care >65y(05524) Diagnoses Peripheral vascular disease I73.9 Plantar fasciitis, right M72.2 Varicose veins of right lower extremity with inflammation I83.11 Impaired glucose tolerance R73.02 Hypercholesterolemia E78.00 Essential hypertension I10 Hypertension type: essential hypertension Additional Codes SAMARA-7 Assessment Billing - SAMARA-7 Assessment Tool: SAMARA-7 Assessment 06920 ([id number]) Assessment & Plan Assessment & Plan (1) Peripheral vascular disease: Code(s): I73.9 - Peripheral vascular disease, unspecified Category: Medical Plan: Continue wearing compression socks as tolerated. Follow up post-procedure with the vein specialist. (2) Plantar fasciitis, right: Code(s): M72.2 - Plantar fascial fibromatosis Category: Medical Plan: Continue to follow with arthritis treatment center previously had cortisone injections and ankles. (3) Varicose veins of right lower extremity with inflammation: Comment: 06/11/2022- right great saphenous vein Cyanoacralate ablation Code(s): I83.11 - Varicose veins of right lower extremity with inflammation Category: Medical Plan: Currently following with Dr. Engel and scheduled to have repeat ablation in the coming months. Advised to use compression stockings and elevate the legs when possible. (4) Impaired glucose tolerance: Code(s): R73.02 - Impaired glucose tolerance (oral) Category: Medical Plan: Decrease the amount of carbohydrates such as pasta, bread, rice, and potatoes and limit the amount of sweets. Although fruits are generally healthy they should be eaten in moderation as they are still high in sugar. (5) Hypercholesterolemia: Code(s): E78.00 - Pure hypercholesterolemia, unspecified Category: Medical Plan: Avoid foods that are high in cholesterol such as red meat, fried foods, eggs and baked goods. Triglyceride goal of less than 150 and LDL goal of less than 100. C ontinue on simvastatin 20 mg (6) Hypertension: Code(s): I10 - Essential (primary) hypertension Category: Medical Qualifiers: Hypertension type: essential hypertension Qualified Code(s): I10 - Essential (primary) hypertension Plan: Continue on current blood pressure medication. Avoid salt intake and encourage healthy diet and regular exercise. Blood pressure slightly elevated today on exam patient states he just returned from vacation had of salt and decreased exercise at that time. We will repeat blood pressure in 3 months advised patient to take blood pressures at home if they are persistently over 140/90 to reach out to the office. Plan This note was constructed using voice recognition software. While every effort has been made to ensure accuracy and executive recruiter, still areas may have been included sometimes these areas may affect the content or meeting of the given symptoms. Total time spent caring for the patient today was 30 minutes. This includes time spent before the visit reviewing the chart, time spent during the visit, and time spent after the visit and documentation. Patient was informed and verbally consented to the use of an ambient scribe for clinic note documentation during this visit.
== END 2023-12-26 09:19 | disposition home or self-care (01) ==
PROVIDERS: PCP Internal Medicine
DX: Z00.00 Encounter for general adult medical examination without abnormal findings (principal); I73.9 Peripheral vascular disease, unspecified; M72.2 Plantar fascial fibromatosis; I83.11 Varicose veins of right lower extremity with inflammation; R73.02 Impaired glucose tolerance (oral); E78.00 Pure hypercholesterolemia, unspecified; I10 Essential (primary) hypertension

== ENCOUNTER → 2023-12-26 08:39 | Outpatient (BNVA) | payer MEDICARE, SELFPAY | PROVIDERS: PCP Internal Medicine | DX: Z00.00 Encounter for general adult medical examination without abnormal findings (principal); I73.9 Peripheral vascular disease, unspecified; M72.2 Plantar fascial fibromatosis; I83.11 Varicose veins of right lower extremity with inflammation; E78.00 Pure hypercholesterolemia, unspecified; R73.02 Impaired glucose tolerance (oral); I10 Essential (primary) hypertension | CPT/HCPCS: 96127; 99397 ==

== ENCOUNTER 2024-01-20 13:23 | Outpatient (AMB) | payer MEDICARE, SELFPAY ==
[2024-01-20 13:23] VITALS: BMI 26.1
--- NOTE | 2024-01-20 13:23 | A.OFFVIS_ITS ---
Vital Signs 01/20/24 13:23 Height 6 ft 1 in Weight 198 lb BMI 26.1 Intake Visit Reasons: Left SSV RFA Accompanied by: Self / Same As Patient Allergies losartan Allergy (Intermediate, Verified 01/20/24 13:) cough lisinopril [LISINOPRIL] Allergy (Unknown, Verified 01/20/24 13:24) UNKNOWN penicillin G [Penicillin G] Allergy (Unknown, Verified 01/20/24 13:24) RASH,HIVES penicillin V Allergy (Unknown, Verified 01/20/24 13:24) Unknown tadalafil Adverse Reaction (Severe, Verified 01/20/24 13:24) Leg cramps PFSH Medical History (Reviewed 01/20/24 @ :24 by JEANETTE Jones) Varicose veins of left lower extremity with inflammation Encounter for abdominal aortic aneurysm (AAA) screening Left leg swelling Upper respiratory tract infection Right knee meniscal tear Pulmonary nodule Hemorrhoids GERD (gastroesophageal reflux disease) Tubular adenoma of colon Hearing impairment Anxiety Thrombophlebitis leg Knee osteoarthritis Hypercholesterolemia Hypertension Surgical History Status post ablation of incompetent vein using laser (08/28/21) History of knee replacement procedure of right knee S/P medial meniscectomy of right knee Hx of shoulder surgery History of vasectomy History of inguinal hernia repair Family History Father No problems noted. Mother Hypertension Paternal Grandmother Pancreatic cancer Social History Housing: House Alcohol intake: current Alcohol intake frequency: holidays/special occasions only Patient Tobacco Use Status: Former Tobacco user Tobacco use type: Cigarette Years Smoked: 2011 quit e-Cigarette/Vaping Use: Never Used Second Hand Smoke Exposure: No Current occupational status: retired Cognitive needs: No Hearing needs: Yes Vision needs: Yes Physical Exam Vital Signs: BMI result Body Mass Index 26.1 Office Procedures Vascular Office Procedure Details Details: Diagnosis: Varicose veins with inflammation of left leg Procedure: Endovenous radiofrequency ablation of the left small saphenous vein(s) of the lower extremity with Venclose Anesthesia: Local infiltration 5 cc, Tumescent 200 cc. Estimated Blood Loss: Minimal The patient was transferred to the procedure suite and the insufficient small saphenous vein was mapped by ultrasound and diagrammed on the overlying skin. The depth and diameter of the vein(s) to be treated was documented. The varicose tributary veins and suitable access sites were identified and mapped as well. The patient was then positioned prone on the procedure table. The affected limb was prepped and draped in the usual sterile fashion. The RF catheter was placed on the sterile field, flushed and wiped down, prepared, and connected by a sterile cable. The patient was placed in a prone position and local anesthesia was instilled in the skin overlying the access site. A skin incision was made overlying the iden tified and mapped small saphenous vein entry site. The vein was accessed using ultrasound guidance and the Seldinger technique, a guide wire was introduced through the needle, which was then exchanged over the guide wire for a 6F sheath, which was secured in place. The guide wire was removed and the sheath was flushed. The RF catheter was placed into the vein through the sheath and preferentially, imaging was used to place the catheter tip just inferior to the saphenopopliteal junction. Additionally, it was confirmed by ultrasound guidance that the catheter tip was also placed a minimum of 1.5cm distal to the saphenopopliteal junction. After the RF catheter position was verified by ultrasound, tumescent anesthesia was infiltrated, under ultrasound guidance, precisely into the perivenous c ompartment along the entire length of vein from the entry site to the saphenofemoral junction until a halo of fluid was noted around the vein. The patient was appropriately position. After RF catheter position was again confirmed with ultrasound imaging, and under direct external compression along the length of the heating element, RF energy was applied. The vein was segmentally ablated by heating a 10 cm segment and then indexing the catheter forward by 9.5 cm until the treatment length is completed. Device temperature was maintained at 120 plus or minus 5 degrees C with an initial power level of 4W/cm dropping to below 2W/cm for each treatment. Total vein length treated 22.5 cm Total cycles of RF 4. Repeat ultrasound of the saphenous vein was performed, confirming successful treatment. The catheter and sheath were withdrawn and hemostasis established with direct pressure. After assuring hemostasis, the skin incision over the saphenous vein was closed with a bandage and a compression wrap was applied from the level of the foot to the most proximal level of the thigh. Discharge instructions were given to the patient inclusive of follow-up ultrasound and [place] [address]18 - Endovenous RF, 1st Vein All charges added?: Procedure code (CPT) selection complete Assessment & Plan Assessment & Plan (1) Varicose veins of left lower extremity with inflammation: Comment: 08/28/2021 - left great saphenous vein Cyanoacralate ablation 01/20/2024 - left small saphenous vein radiofrequency ablation Code(s): I83.12 - Varicose veins of left lower extremity with inflammation Category: Medical Plan: See op note Coding Level of Care Code Procedure Only Diagnoses Varicose veins of left lower extremity with inflammation I83.12 CPT Codes Details - Vascular 1: 52418 - Endovenous RF, 1st Vein ([id number])
--- OUTSIDE RECORDS SUMMARY | 2024-01-20 13:25 | XMS_ITS | Patient Health Record ---
Author Organization [facility] Address [address] [place] [address] Care Team Providers Care Graduate Studies Dean Name Role Phone Po Micheal MCCAIN Primary Care Provider Carloz Salgado [phone] ALLERGIES Allergen (clinical drug ingredient) Drug/Non Drug Allergy documented on EMR Reaction Allergy Type Onset Date Status Penicillin Unknown Drug Allergy Active REASON FOR REFERRAL No Information MEDICATIONS Medication SIG (Take, Route, Frequency, Duration) Notes Start Date End Date Status Losartan Potassium 50 MG Orally Active Vitamin D Active Vitamin E 100 UNIT 1 capsule Orally Onc e a day for 30 day(s) Active Vitamin B + C Complex - as directed Orally Active Simvastatin 20 MG 1 tablet in the even ing Orally Once a day Active IMMUNIZATIONS Vaccine Route Administration Date Status Comme nts Influenza Unknown 11/19/2020 Administered SOCIAL HISTORY Sex Assigned At : Social History Observation Description Sex Assigned At Unknown Alcohol Screen Question Answer Notes Did you have a drink contain ing alcohol in the past year? Yes How often did you have a dri nk containing alcohol in the past year? 2 to 4 times a month (2 points) How many drinks did you have on a typical day when you were drinking in the past year? 1 or 2 drinks (0 point) How often did you have 6 or more drinks on one occasion in the past year? Never (0 point) Points 2 Interpretation Negative PROBLEMS Problem Type ICD Code Onset Dates Problem Status W/U Status Risk SNOMED Code Notes Problem History of adenomatous polyp of colon (Z86.010) Active confirmed 364413796 Problem Encounter for screening for malignant neoplasm of colon (Z12.11) Active confirmed 268705581 Problem Encounter for screening for malignant neoplasm of rectum (Z12.12) Active confirmed Screening fo r malignant neoplasm of rectum (183006323) Problem Preprocedural examination (Z01.818) Active confirmed 14535804 Problem Cough (R05.9) Active confirmed 51341276 Problem Chronic throat clearing (R68.89) Active confirmed 454333270 Problem Diverticulosis of colon (K57.30) Active confirmed Diverticulosi s of colon (924632766) PLAN OF TREATMENT Pending Test Test Name Order Date Pathology 04/13/2021 Future Test Test Name Order Date COLONOSCOPY 02/28/2015 COLONOSCOPY 03/12/2021 Insurance Providers Payer Name Payer Address Payer Phone Subscriber Number Group Number Insured Name Patient Relationship to Insured Coverage Start Date Coverage End Date [facility] [address] [place] [phone] [id number] ABNUDIO KELLER Self - patient is the insured MEDICAL (GENERAL) HISTORY Medical History History ICD Code Colonoscopy 10/2004 with 2 tubular adenom as removed Colonoscopy 11-21-2009--mild diverticulo sis and internal hemorrhoids Hypertension Denies [place],DM,CVA,Lung disease,renal dise ase Hyperlipidemia Negative colonoscopy in 04/2015 Superficial clots in LE's/Phlebitis--on Xarelto once Surgical History Surgery Date(Month/Year) shoulder surgery hernia repair vasectomy knee left surgery 2015 knee replacement 11/2018
--- OUTSIDE RECORDS SUMMARY | 2024-01-20 13:26 | XMS_ITS | Patient Health Record ---
[facility] Address [address] [place] [address] Care Team Providers Care Louver Door Assembler Name Role Phone Micheal Rush Primary Care Provider Naomie Young Unavailable [phone] Allergies Allergen (clinical drug ingredient) Drug/Non Drug Allergy documented on EMR Reaction Allergy Type Onset Date Status Penicillin hives Drug Allergy Active Reason For Referral No Information Medications Medication SIG (Take, Route, Frequency, Duration) Notes Start Date End Date Status Losartan Potassium 50 MG 1 tablet Orally Once a day for 30 day(s) Active Simvastatin 10 MG 1 tablet in the even ing Orally Once a day for 30 day(s) Active Immunizations Vaccine Route Administration Date Status Comme nts COVID-19 Moderna Vaccine Unknown 12/03/2020 Administered 1ST DOSE: 03/31/2020 2ND 04/28/2020 Social History Tobacco Use: Social History Observation Description Date Details (start date - stop date) Never Smoker NA - NA Tobacco Use/Smoking Question Answer Notes Are you a: nonsmoker Additional Findings: Tobacco Non-User Current no n-smoker Alcohol Screen Question Answer Notes Did you have a drink containing alcohol in the p ast year? Yes Points 0 Interpretation Negative Tobacco use other than smoking: Question Answer Notes Are you an other tobacco user? No Problems Problem Type SNOMED Code ICD Code Onset Dates Problem Status W/U Status Risk Notes Problem 983504964988125 Osteoarthritis o f right ankle 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) Active confirmed Problem 79687714 Osteoarthritis o f left ankle and foot (M19.072) Active confirmed Plan Of Treatment Pending Test Test Name Order Date X ray : Foot, left 3V 11/04/2020 X ray : Foot, right 3V 11/04/2020 14597, J0702- INJECT or DRAIN, JOINT/BUR SA 11/04/2020 Insurance Providers Payer Name Payer Address Payer Phone Subscriber Number Group Number Insured Name Patient Relationship to Insured Coverage Start Date Coverage End Date [employer] [place] [employer]vantage [facility] [address] [facility] [place] [address] [id number] Tyler Jerry Self - patient is the insured Medical (General) History Medical History History ICD Code Arthritis Back,Hip,and Knee pain CAD (Cholesterol) Chicken pox Hiatal hernia High blood pressure Joint implants/screws Vascular phlebitis (clots) Surgical History Surgery Date(Month/Year) knee replacement
== END 2024-01-20 14:02 | disposition home or self-care (01) ==
PROVIDERS: PCP Internal Medicine; Visit Provider Surgery Vascular Surgery
DX: I83.12 Varicose veins of left lower extremity with inflammation (principal)
CPT/HCPCS: 36475

== ENCOUNTER → 2024-01-20 13:23 | Outpatient (BNVA) | payer MEDICARE, SELFPAY | PROVIDERS: PCP Internal Medicine; Visit Provider Surgery Vascular Surgery | DX: I83.12 Varicose veins of left lower extremity with inflammation (principal) | CPT/HCPCS: 36475; J2003; J2004 ==

== ENCOUNTER 2024-01-23 10:55 | Outpatient (REF) | payer MEDICARE, SELFPAY ==
--- NOTE | ~2024-01-23 | US_ITS ---
EXAMINATION: TRIPLEX SCANNING OF LEFT LOWER EXTREMITY; SUPERFICIAL ULTRASOUND WITH DOPPLER OF LEFT LOWER EXTREMITY CLINICAL INFORMATION: Status post radiofrequency ablation of the small saphenous vein Ambulatory phlebectomy performed: No Originally performed on 01/20/24. COMPARISON: preprocedure studies. TECHNIQUE: Color flow triplex imaging and compression Doppler were performed as well as superficial ultrasound with Doppler. FINDINGS: LEFT LOWER EXTREMITY DEEP VENOUS SYSTEM: Respiratory variation, normal compression and augmented flow are noted throughout the lower extremity. The visualized common femoral vein, femoral vein, profunda femoral vein, popliteal vein and the calf veins show no evidence of deep venous thrombosis. There is no evidence of Rod's cyst. SUPERFICIAL VENOUS SYSTEM: The small saphenous vein is occluded from the access site to just before the saphenofemoral junction. There is no extension of thrombus into the deep system. US/US venous duplex LE LT IMPRESSION: No evidence of DVT. Electronically signed by: Margaret Urbina MD 01/23/2024 12:32 PM [facility]
== END 2024-01-23 10:56 | disposition home or self-care (01) ==
LOC: HO.US 10:55
PROVIDERS: PCP Internal Medicine; Visit Provider Surgery Vascular Surgery
DX: M79.605 Pain in left leg (principal)
CPT/HCPCS: 93971

== ENCOUNTER 2024-02-02 09:25 | Outpatient (AMB) | payer MEDICARE, SELFPAY ==
--- OUTSIDE RECORDS SUMMARY | 2024-02-02 09:27 | XMS_ITS | Patient Health Record ---
[facility] Address [address] [place] [address] Care Team Providers Care Program Lead Name Role Phone Micheal Rush Primary Care Provider Naomie Young Unavailable [phone] Allergies Allergen (clinical drug ingredient) Drug/Non Drug [...] Problem Status W/U Status Risk Notes Problem [id number] Osteoarthritis o f right ankle 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) Active confirmed Problem 58171054 Osteoarthritis o f left ankle and foot (M19.072) Active confirmed Plan Of Treatment Pending Test Test Name Order Date X ray : Foot, left 3V 11/04/2020 X ray : Foot, right 3V 11/04/2020 09940, J0702- INJECT or DRAIN, JOINT/BUR SA 11/04/2020 Insurance Providers Payer Name Payer Address Payer Phone Subscriber Number Group Number Insured Name Patient Relationship to Insured Coverage Start Date Coverage End Date [employer] [place] Medicare [employer]vantage One [facility] [address] [facility] [place] [address] [id number] Tyler Jerry Self - patient is the insured Medical (General) History Medical History History ICD Code Arthritis Back,Hip,and Knee pain CAD (Cholesterol) Chicken pox Hiatal hernia High blood pressure Joint implants/screws Vascular phlebitis (clots) Surgical History Surgery Date(Month/Year) knee replacement
--- NOTE | 2024-02-02 09:36 | MHC.OFFVIS ---
Vital Signs 02/02/24 09:37 Height 6 ft 1 in Weight 198 lb BMI 26.1 Intake Visit Reasons: 2 week follow up s/p Left SSV RFA Intake Note: 2 week follow up s/p Left SSV RFA 01/20/24, Pt states he still has soreness and swelling over the treated area. Painful to touch. Accompanied by: Self / Same As Patient Allergies losartan Allergy (Intermediate, Verified 02/02/24 09:40) cough lisinopril [LISINOPRIL] Allergy (Unknown, Verified 02/02/24 09:40) UNKNOWN penicillin G [Penicillin G] Allergy (Unknown, Verified 02/02/24 09:40) RASH,HIVES penicillin V Allergy (Unknown, Verified 02/02/24 09:40) Unknown tadalafil Adverse Reaction (Severe, Verified 02/02/24 09:40) Leg cramps HPI HPI 2 week follow up s/p Left SSV RFA: Details: Tyler is presenting today for a follow up to a left SSV RFA, performed on 01/20/24. He tolerated the procedure well. He is here today to follow up. He states he continues with left lower extremity swelling, but not worsening. He states that were the procedure was performed is not sore unless he bumps it. The steri strips have not fallen off yet. He denies any concerns/complaints today. He states he is back to doing his normal physical activities, including golfing without difficulty. COUNT INCLUDES THE [facility] Medical History Varicose veins of left lower extremity with inflammation Encounter for abdominal aortic aneurysm (AAA) screening Left leg swelling Upper respiratory tract infection Right knee meniscal tear Pulmonary nodule Hemorrhoids GERD (gastroesophageal reflux disease) Tubular adenoma of colon Hearing impairment Anxiety Thrombophlebitis leg Knee osteoarthritis Hypercholesterolemia Hypertension Surgical History Status post ablation of incompetent vein using laser (08/28/21) History of knee replacement procedure of right knee S/P medial meniscectomy of right knee Hx of shoulder surgery History of vasectomy History of inguinal hernia repair Family History Father No problems noted. Mother Hypertension Paternal Grandmother Pancreatic cancer Social History (Reviewed 02/02/24 @ 09:41 by Malaika Beaulieu [facility]) Housing: House Alcohol intake: current Alcohol intake frequency: holidays/special occasions only Patient Tobacco Use Status: Former Tobacco user Tobacco use type: Cigarette Years Smoked: 2011 quit e-Cigarette/Vaping Use: Never Used Second Hand Smoke Exposure: No Current occupational status: retired Cognitive needs: No Hearing needs: Yes Vision needs: Yes Review of Systems Const Reports as per HPI and Denies weakness ENT Reports Normal hearing present and Denies dizziness Card Reports as per HPI, Denies chest pain, Denies chest pain at rest, Denies chest pain with activity, Denies dyspnea and Denies dyspnea on exertion Resp Reports as per HPI, Denies cough, Denies dyspnea and Denies dyspnea on exertion GI Reports as per HPI, Denies abdominal pain, Denies nausea and Denies vomiting Musc Denies numbness Skin/Breast Reports as per HPI, Denies erythema and Denies wounds Neuro Reports Normal hearing present, Denies dizziness, Denies numbness, Denies Sensory deficit (Neuro) and Denies weakness Psych Reports no additional complaints Endo Reports no additional complaints Physical Exam Vital Signs: BMI result Body Mass Index 26.1 Const General: healthy appearing and no acute distress Orientation/consciousness: patient oriented x3 HEENT Head: Yes normal to inspection Ears: hearing grossly normal bilaterally Mouth: Normal oral and palatal mucosa present Resp Effort & Inspection: normal respiratory effort and able to speak in complete sentences Auscultation: clear to auscultation bilaterally Cardio Jugular venous distension: no JVD Rate: regular rate Rhythm: regular rhythm Heart sounds: S1 normal heart sound present and S2 normal heart sound present Bruits: no abdominal aortic bruits, no carotid bruits, no femoral bruits and no renal bruits Peripheral pulses: Peripheral pulses 2+ throughout GI Inspection: Yes normal to inspection Palpation (GI): No Abdominal aortic bruit present Skin General skin exam: no rashes or lesions noted Wounds: no wounds Hair: normal Neuro General: patient oriented x3 Cranial nerves: Yes Normal hearing present Cognition (Neuro): normal cognition Gait exam (Neuro): Normal gait present Motor exam (neuro): 5/5 motor strength present throughout Sensory Exam: No Sensory deficit (Neuro) Extrem Other: LLE: trace peripheral edema noted. Palpable DP pulses. Incision site C/D/I. Steri strip in place, removed easily. General: Yes normal to inspection, Yes full ROM, Yes capillary refill normal and Yes normal gait Assessment & Plan Assessment & Plan (1) Varicose veins of left lower extremity with inflammation: Comment: 08/28/2021 - left great saphenous vein Cyanoacralate ablation 01/20/2024 - left small saphenous vein radiofrequency ablation Code(s): I83.12 - Varicose veins of left lower extremity with inflammation Category: Medical Plan: Tyler is presenting today for a follow up to left SSV RFA, performed in our office on 01/20/24. He continues to endorse left lower extremity swelling and pain only when the incision area is bumped. The steri strips had not fallen off, so we removed them and the site is C/D/I. We discussed continued use of compression stockings, hiram when doing physical activity (golfing) or walking/standing. We discussed that the swelling can take up to several months to get better. We discussed also to elevate his legs as well. We discussed the importance of physical activity. At this point, we will have him follow up with us only as needed. If there are any questions or concerns, please do not hesitate to reach out to us. Coding Level of Care Code Est Pt Level 4 (48293) Diagnoses Varicose veins of left lower extremity with inflammation I83.12
[2024-02-02 09:37] VITALS: BMI 26.1
== END 2024-02-02 09:49 | disposition home or self-care (01) ==
PROVIDERS: PCP Internal Medicine; Visit Provider Physician Assistant Surgical
DX: I83.12 Varicose veins of left lower extremity with inflammation (principal)
CPT/HCPCS: 99214

== ENCOUNTER → 2024-02-02 09:25 | Outpatient (BNVA) | payer MEDICARE, SELFPAY | PROVIDERS: PCP Internal Medicine; Visit Provider Physician Assistant Surgical | DX: I83.12 Varicose veins of left lower extremity with inflammation (principal) | CPT/HCPCS: 99212 ==

== ENCOUNTER 2024-03-27 07:52 | Outpatient (AMB) | payer MEDICARE, SELFPAY ==
--- OUTSIDE RECORDS SUMMARY | 2024-03-27 07:55 | XMS_ITS | Patient Health Record ---
Author Organization [facility] Address [address] [place] [address] Care Team Providers Care Pastoral Counselor Name Role Phone Po Micheal MCCAIN Primary Care Provider Carloz Salgado [phone] ALLERGIES Allergen (clinical drug ingredient) Drug/Non Drug [...] adenomatous polyp of colon (Z86.010) Active confirmed 196108578 Problem Encounter for screening for malignant neoplasm of colon (Z12.11) Active confirmed 507346892 Problem Encounter for screening for malignant neoplasm of rectum (Z12.12) Active confirmed Screening fo r malignant neoplasm of rectum (850117461) Problem Preprocedural examination (Z01.818) Active confirmed 31366442 Problem Cough (R05.9) Active confirmed 15309550 Problem Chronic throat clearing (R68.89) Active confirmed 717081837 Problem Diverticulosis of colon (K57.30) Active confirmed Diverticulosi s of colon (176789803) PLAN OF TREATMENT Pending Test Test Name Order Date Pathology 04/13/2021 Future Test Test Name Order Date COLONOSCOPY 02/28/2015 COLONOSCOPY 03/12/2021 Insurance Providers Payer Name Payer Address Payer Phone Subscriber Number Group Number Insured Name Patient Relationship to Insured Coverage Start Date Coverage End Date [facility] [address] [place] [phone] [id number] ABUNDIO KELLER Self - patient is the insured MEDICAL (GENERAL) HISTORY Medical History History ICD Code Colonoscopy 10/2004 with 2 tubular adenom as removed Colonoscopy 11-21-2009--mild diverticulo sis and internal hemorrhoids Hypertension Denies IL,DM,CVA,Lung disease,renal dise ase Hyperlipidemia Negative colonoscopy in 04/2015 Superficial clots in LE's/Phlebitis--on Xarelto once Surgical History Surgery Date(Month/Year) shoulder surgery hernia repair vasectomy knee left surgery 2015 knee replacement 11/2018
--- OUTSIDE RECORDS SUMMARY | 2024-03-27 07:55 | XMS_ITS | Patient Health Record ---
Author [facility] Address [address] [place] [address] Care Team Providers Care Benefits Consulting Analyst Name Role Phone Micheal Rush Primary Care Provider Naomie Young Unavailable [phone] Allergies Allergen (clinical drug ingredient) Drug/Non Drug [...] Problem Status W/U Status Risk Notes Problem [id number] Osteoarthritis o f right ankle 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) Active confirmed Problem 92756445 Osteoarthritis o f left ankle and foot (M19.072) Active confirmed Plan Of Treatment Pending Test Test Name Order Date X ray : Foot, left 3V 11/04/2020 X ray : Foot, right 3V 11/04/2020 06525, J0702- INJECT or DRAIN, JOINT/BUR SA 11/04/2020 Insurance Providers Payer Name Payer Address Payer Phone Subscriber Number Group Number Insured Name Patient Relationship to Insured Coverage Start Date Coverage End Date [employer] [place] [employer]age [facility] [address] [facility] [place] [address] [id number] Tyler Jerry Self - patient is the insured Medical (General) History Medical History History ICD Code Arthritis Back,Hip,and Knee pain CAD (Cholesterol) Chicken pox Hiatal hernia High blood pressure Joint implants/screws Vascular phlebitis (clots) Surgical History Surgery Date(Month/Year) knee replacement
--- NOTE | 2024-03-27 08:14 | MHC.PC.OV ---
Vital Signs 03/27/24 08:16 Height 6 ft 1 in Weight 196 lb 8 oz BMI 25.9 BP 120/86 Blood Pressure Location Lt brachial Position Sitting Pulse 59 Pulse Source Pulse Oximeter Temp 96.9 F Temp Source Temporal Artery Scan Pulse Oximetry (%) 96 Oxygen Delivery Method Room Air Intake Visit Reasons: f/u HTN Intake Note: Patient is here to follow up on HTN. Anesthesia Assistant Required: No Contact Lens Molder: Not Required per policy Accompanied by: Self / Same As Patient Allergies losartan Allergy (Intermediate, Verified 03/27/24 08:15) cough lisinopril [LISINOPRIL] Allergy (Unknown, Verified 03/27/24 08:15) UNKNOWN penicillin G [Penicillin G] Allergy (Unknown, Verified 03/27/24 08:15) RASH,HIVES penicillin V Allergy (Unknown, Verified 03/27/24 08:15) Unknown tadalafil Adverse Reaction (Severe, Verified 03/27/24 08:15) Leg cramps Tobacco use date assessed: 03/27/24 Fall risk assessment: No Falls in past year Last assessed Fall Risk: 03/27/24 Dental Screening Dental Screen Date: 03/27/24 Did you have a dental visit in the last 12 months?: Yes Did you have a dental problem in the last 6 months where you did not have access to dental care?: No Was dental information given to patient?: Patient has dentist HPI f/u HTN HPI Details 69-year-old male with past medical history of hypertension, hypercholesterolemia, impaired glucose tolerance, peripheral vascular disease last seen 12/2023 coming in for follow up on blood pressure. In review of the notes, patient was seen by vascular surgery 01/2024 for follow up to left SSV RFA completed on 01/20/2024 advised to continue using compression stockings and elevate the legs and follow up as needed. Patient tells us today he has been feeling generally well. He just recently came back from vacation and will be leaving again for vacation in a few weeks. He states his leg swelling has been improving but notices when he walks or drinks alcohol the swelling more worsen. He has been using compression stockings with good relief. [facility] Medical History Varicose veins of left lower extremity with inflammation Encounter for abdominal aortic aneurysm (AAA) screening Left leg swelling Upper respiratory tract infection Right knee meniscal tear Pulmonary nodule Hemorrhoids GERD (gastroesophageal reflux disease) Tubular adenoma of colon Hearing impairment Anxiety Thrombophlebitis leg Knee osteoarthritis Hypercholesterolemia Hypertension Surgical History Status post ablation of incompetent vein using laser (08/28/21) History of knee replacement procedure of right knee S/P medial meniscectomy of right knee Hx of shoulder surgery History of vasectomy History of inguinal hernia repair Family History Father No problems noted. Mother Hypertension Paternal Grandmother Pancreatic cancer Social History Housing: House Alcohol intake: current Alcohol intake frequency: holidays/special occasions only Patient Tobacco Use Status: Former Tobacco user Tobacco use type: Cigarette Years Smoked: 2011 quit e-Cigarette/Vaping Use: Never Used Second Hand Smoke Exposure: Yes service: No Current occupational status: retired Cognitive needs: No Hearing needs: Yes Vision needs: Yes Questionnaire PHQ-9 Over the last 2 weeks, how often have you been bothered by any of the following problems? 1. Little interest or pleasure in doing things: not at all 2. Feeling down, depressed, or hopeless: not at all 3. Trouble falling or staying asleep, or sleeping too much: not at all 4. Feeling tired or having little energy: not at all 5. Poor appetite or overeating: not at all 6. Feeling bad about yourself - or that you are a failure or have let yourself or your family down: not at all 7. Trouble concentrating on things, such as reading the newspaper or watching television: not at all 8. Moving or speaking so slowly that other people could have noticed. Or the opposite - being so fidgety or restless that you have been moving around a lot more than usual: not at all 9. Thoughts that you would be better off or of hurting yourself in some way: not at all Total score: 0 Depression Screening Interpretation: Negative Depression Screening Done: Yes Source: Developed by Drs. Carloz Ca, Brooklynn Shukla, Dhaval Crawford and colleagues, with an educational brennan from [employer]. Thrive Questionnaire Date Thrive assessed: 03/27/24 I am a: Patient What is your living situation today?: I have a steady place to live Within the past 12 months, did the food you bought not last and you didn't have the money to get more?: Never true Within the past 12 months, did you worry whether your food would run out before you got money to buy more?: Never true Do you have trouble paying for medicines?: No Do you have trouble getting transportation to medical appointments?: No Do you have trouble paying your heating and electricity bill?: No Do you have trouble taking care of your child, family member or friend?: No Do you have trouble with day-to-day activities such as bathing, preparing meals, shopping, managing finances, etc.?: No Are you currently unemployed and looking for a job?: No Are you interested in more education?: No Please select the resources that you would like help with: None Currently or been in a relationship where the following occur: No concerns reported THRIVE Score: 0 AUDIT C Alcohol Use Questionnaire (AUDIT-C) 2. How many drinks containing alcohol do you have on a typical day when you are drinking?: 1 or 2 3. How often do you have six or more drinks on one occasion?: Never Total Score: 0 SAMARA-7 AMB Questionnaire SAMARA-7 Date SAMARA - 7 assessed: 03/27/24 Feeling nervous, anxious, or on edge: 0 = Not at all Not being able to stop or control worryin = Not at all Worrying too much about different things: 0 = Not at all Trouble relaxin = Not at all Being so restless that it is hard to sit still: 0 = Not at all Becoming easily annoyed or irritable: 0 = Not at all Feeling afraid as if something awful might happen: 0 = Not at all Total SAMARA-7 score (0-4 normal; 5-9 mild; 10-14 moderate; 15-21 severe): 0 Source: Developed by Drs. Carloz Ca, Brooklynn Shukla, Dhaval Crawford and colleagues, with an educational brennan from [employer]. Review of Systems Const Denies body aches, Denies chills, Denies fever(s), Denies headache(s) and Denies poor appetite Eyes Reports no additional complaints ENT Denies dysphagia, Denies dizziness, Denies headache(s) and Denies odynophagia Card Denies chest pain, Denies syncope, Denies edema, Denies irregular heart rhythm, Denies lightheadedness and Denies dyspnea Resp Denies cough and Denies dyspnea GI Denies abdominal pain, Denies constipation, Denies dysphagia, Denies diarrhea, Denies nausea, Denies odynophagia and Denies vomiting Reports no additional complaints Musc Reports no additional complaints and Denies abnormal gait Skin/Breast Reports system reviewed and no additional complaints, except as documented Neuro Denies abnormal gait, Denies dizziness, Denies syncope and Denies headache(s) Psych Reports no additional complaints Physical exam (Primary Care) Vital Signs: Last Vital Signs Temp 96.9 F 03/27/24 08:16 Pulse 59 03/27/24 08:16 BP 120/86 03/27/24 08:16 Pulse Ox 96 03/27/24 08:16 Oxygen Delivery Method Room Air 03/27/24 08:16 BMI result Body Mass Index 25.9 Tobacco/Smoking Status: Tobacco use Status Tobacco use date assessed 03/27/24 03/27/24 08:20 Patient Tobacco Use Status Former Tobacco user 03/27/24 08:20 Tobacco use type Cigarette 03/27/24 08:20 e-Cigarette/Vaping Use Never Used 03/27/24 08:20 PHQ-9: PHQ-9 Score PHQ-9: Total score 0 03/27/24 08:20 Depression Screening Interpretation: Negative Thrive Assessment: Date of Thrive Assessment Date Thrive assessed 03/27/24 03/27/24 08:20 Currently or been in a relationship where the following occur: No concerns reported Const General: cooperative, healthy appearing, comfortable and no acute distress Orientation/consciousness: patient oriented x3 HENMT Head: Yes normocephalic Ears: hearing grossly normal bilaterally General nose exam: Normal external nose present Eyes General: appearance normal, both eyes and all related structures Conjunctivae: conjunctivae normal Neck Neck: Yes full ROM and Yes no lymphadenopathy Resp Effort & Inspection: normal respiratory effort Auscultation: clear to auscultation bilaterally, no crackles, no rales, no rhonchi and no wheezes Cardio Rate: regular rate Rhythm: regular rhythm Skin General skin exam: no rashes or lesions noted Neuro General: patient oriented x3 Gait exam (Neuro): Normal gait present Extrem General: Yes normal to inspection, Yes full ROM and No edema Psych Affect: normal affect Attitude: cooperative Insight: Good insight present (Psych) Judgement: Good judgement present (Psych) Coding Level of Care Code Est Pt Level 3 (77106) Diagnoses Peripheral vascular disease I73.9 Varicose veins of left lower extremity with inflammation I83.12 Hypercholesterolemia E78.00 Essential hypertension I10 Hypertension type: essential hypertension Assessment & Plan Assessment & Plan (1) Peripheral vascular disease: Code(s): I73.9 - Peripheral vascular disease, unspecified Category: Medical Plan: Recently seen by vascular surgery and had procedure completed on the left leg. He states his symptoms have been improving and is having less lower extremity swelling. He continues to use compression stockings and elevate the legs as needed. Continue to follow with vascular surgery as needed. (2) Varicose veins of left lower extremity with inflammation: Comment: 08/28/2021 - left great saphenous vein Cyanoacralate ablation 01/20/2024 - left small saphenous vein radiofrequency ablation Code(s): I83.12 - Varicose veins of left lower extremity with inflammation Category: Medical Plan: Patient recently had left small saphenous vein radiofrequency ablation completed with vascular surgery. Advised to follow up with them as needed. Continue with compression stockings and elevation (3) Hypercholesterolemia: Code(s): E78.00 - Pure hypercholesterolemia, unspecified Category: Medical Plan: Avoid foods that are high in cholesterol such as red meat, fried foods, eggs and baked goods. Triglyceride goal of less than 150 and LDL goal of less than 130. Not currently on medical management. Ordered for repeat cholesterol labs (4) Hypertension: Code(s): I10 - Essential (primary) hypertension Category: Medical Qualifiers: Hypertension type: essential hypertension Qualified Code(s): I10 - Essential (primary) hypertension Plan: Continue on current blood pressure medication. Avoid salt intake and encourage healthy diet and regular exercise. Plan This note was constructed using voice recognition software. While every effort has been made to ensure accuracy and travel registered nurse oncology, still areas may have been included sometimes these areas may affect the content or meeting of the given symptoms. Total time spent caring for the patient today was 20 minutes. This includes time spent before the visit reviewing the chart, time spent during the visit, and time spent after the visit and documentation. Orders: Orders Comprehensive Met. Panel 6 Months Z00.00 - Encounter for general adult medical examination without abnormal findings Complete Blood Count Auto Diff 6 Months Z00.00 - Encounter for general adult medical examination without abnormal findings PSA, Ultra Sensitive 6 Months Z00.00 - Encounter for general adult medical examination without abnormal findings TSH reflex Free T4 6 Months Z00.00 - Encounter for general adult medical examination without abnormal findings Lipid Panel 6 Months E78.00 - Pure hypercholesterolemia, unspecified Vitamin B12 and Folate 6 Months Z00.00 - Encounter for general adult medical examination without abnormal findings Vitamin D 25-OH Total 6 Months Z00.00 - Encounter for general adult medical examination without abnormal findings
[2024-03-27 08:16] VITALS: BP 120/86; PULSE 59; TEMP 36.1; O2SAT 96; BMI 25.9
== END 2024-03-27 08:37 | disposition home or self-care (01) ==
PROVIDERS: PCP Internal Medicine
DX: I73.9 Peripheral vascular disease, unspecified (principal); I83.12 Varicose veins of left lower extremity with inflammation; E78.00 Pure hypercholesterolemia, unspecified; I10 Essential (primary) hypertension

== ENCOUNTER → 2024-03-27 07:52 | Outpatient (BNVA) | payer MEDICARE, SELFPAY | PROVIDERS: PCP Internal Medicine | DX: I73.9 Peripheral vascular disease, unspecified (principal); I83.12 Varicose veins of left lower extremity with inflammation; E78.00 Pure hypercholesterolemia, unspecified; I10 Essential (primary) hypertension | CPT/HCPCS: 99212 ==

== ENCOUNTER 2024-09-20 07:24 | Outpatient (REF) | payer MEDICARE, SELFPAY ==
[2024-09-20 07:50] LABS: MANUAL DIFF FLAG NO
[2024-09-20 08:36] LABS: Hematocrit 47.8 % (42.0-52.0); Hemoglobin 16.4 g/dl (14.0-18.0); Imm Gran Abs Auto 0.03 X10*3/uL (0.00-0.03); Imm Gran Pct Auto 0.5 % (0.0-0.4); Lymphocytes Absolute Auto 2.0 X10*3/uL (1.2-4.9); Mean Corpuscular HGB Conc 34.3 g/dl (31.0-36.0); Mean Corpuscular Hemoglobin 31.4 pg (27.0-33.0); Mean Corpuscular Volume 91.4 fL (80.0-98.0); NRBC Abs Auto 0.000 X10*3/uL (0.0-0.012); NRBC Pct Auto 0.0 /100WBC (0.0-0.2); Platelet Count 230 X10*3/uL (160-400); Red Blood Count 5.23 X10*6/uL (4.60-5.80); White Blood Count 5.8 X10*3/uL (4.8-10.8)
[2024-09-20 09:15] LABS: Alanine Aminotransferase 25 U/L (0-40); Albumin Level 4.3 g/dL (3.5-5.0); Alkaline Phosphatase 76 U/L (39-117); Anion Gap 11 (12-20); Aspartate Amino Transferase 28 U/L (5-37); Blood Urea Nitrogen 18 mg/dL (9-16); Calcium 9.0 mg/dL (8.4-10.2); Carbon Dioxide 26 mmol/L (22-29); Chloride 106 mmol/L (96-108); Cholesterol 177 mg/dL (<200); Estimated Glomerular Filt Rate > 60; HDL Cholesterol 35 mg/dL (>40); Potassium 4.4 mmol/L (3.3-5.1); Sodium 139 mmol/L (135-145); Total Protein 6.6 g/dL (6.5-8.0); Triglycerides 147 mg/dL (<150)
[2024-09-20 09:33] LABS: Folate 14.4 ng/mL (> or = 4.0); Vitamin B12 364 pg/mL (200-900)
[2024-09-26 23:28] LABS: PSA, Ultra Sensitive 0.60 ng/mL
== END 2024-09-20 07:25 | disposition home or self-care (01) ==
LOC: HO.LAB 07:24
DX: Z00.00 Encounter for general adult medical examination without abnormal findings (principal); E78.00 Pure hypercholesterolemia, unspecified; Z12.5 Encounter for screening for malignant neoplasm of prostate
CPT/HCPCS: 36415; 80053; 80061; 82306; 82607; 82746; 84153; 84443; 85025

== ENCOUNTER 2024-09-25 08:25 | Outpatient (AMB) | payer MEDICARE, SELFPAY ==
[2024-09-25 08:29] VITALS: BP 124/72; PULSE 52; O2SAT 96; BMI 24.8
--- NOTE | 2024-09-25 08:29 | A.OFFPC_ITS ---
Vital Signs 09/25/24 08:29 Height 6 ft 1 in Weight 188 lb BMI 24.8 BP 124/72 Blood Pressure Location Lt brachial Position Sitting Pulse 52 Pulse Source Pulse Oximeter Pulse Oximetry (%) 96 Oxygen Delivery Method Room Air Intake Visit Reasons: f/u HLD and HTN Allergies losartan Allergy (Intermediate, Verified 09/25/24 08:30) cough lisinopril (LISINOPRIL) Allergy (Unknown, Verified 09/25/24 08:30) UNKNOWN penicillin G (Penicillin G) Allergy (Unknown, Verified 09/25/24 08:30) RASH,HIVES penicillin V Allergy (Unknown, Verified 09/25/24 08:30) Unknown tadalafil Adverse Reaction (Severe, Verified 09/25/24 08:30) Leg cramps Tobacco use date assessed: 03/27/24 Fall risk assessment: No Falls in past year Last assessed Fall Risk: 09/25/24 Dental Screening Dental Screen Date: 03/27/24 [facility] Medical History Varicose veins of left lower extremity with inflammation Encounter for abdominal aortic aneurysm (AAA) screening Left leg swelling Upper respiratory tract infection Right knee meniscal tear Pulmonary nodule Hemorrhoids GERD (gastroesophageal reflux disease) Tubular adenoma of colon Hearing impairment Anxiety Thrombophlebitis leg Knee osteoarthritis Hypercholesterolemia Hypertension Surgical History Status post ablation of incompetent vein using laser (08/28/21) History of knee replacement procedure of right knee S/P medial meniscectomy of right knee Hx of shoulder surgery History of vasectomy History of inguinal hernia repair Family History Father No problems noted. Mother Hypertension Paternal Grandmother Pancreatic cancer Social History (System 06/27/24 @ 13:22 by Jeny Trujillo) Housing: House Alcohol intake: current Alcohol intake frequency: holidays/special occasions only Patient Tobacco Use Status: Former Tobacco user Tobacco use type: Cigarette Years Smoked: 2011 quit e-Cigarette/Vaping Use: Never Used Second Hand Smoke Exposure: Yes service: No Current occupational status: retired Cognitive needs: No Hearing needs: Yes Vision needs: Yes Questionnaire PHQ-9 Over the last 2 weeks, how often have you been bothered by any of the following problems? 1. Little interest or pleasure in doing things: not at all 2. Feeling down, depressed, or hopeless: not at all 3. Trouble falling or staying asleep, or sleeping too much: not at all 4. Feeling tired or having little energy: not at all 5. Poor appetite or overeating: not at all 6. Feeling bad about yourself - or that you are a failure or have let yourself or your family down: not at all 7. Trouble concentrating on things, such as reading the newspaper or watching television: not at all 8. Moving or speaking so slowly that other people could have noticed. Or the opposite - being so fidgety or restless that you have been moving around a lot more than usual: not at all 9. Thoughts that you would be better off or of hurting yourself in some way: not at all Total score: 0 Depression Screening Interpretation: Negative Depression Screening Done: Yes Source: Developed by Drs. Carloz Ca, Brooklynn Shukla, Dhaval Crawford and colleagues, with an educational brennan from [employer]. Thrive Questionnaire Date Thrive assessed: 03/27/24 I am a: Patient What is your living situation today?: I have a steady place to live Within the past 12 months, did the food you bought not last and you didn't have the money to get more?: Never true Within the past 12 months, did you worry whether your food would run out before you got money to buy more?: Never true Do you have trouble paying for medicines?: No Do you have trouble getting transportation to medical appointments?: No Do you have trouble paying your heating and electricity bill?: No Do you have trouble taking care of your child, family member or friend?: No Do you have trouble with day-to-day activities such as bathing, preparing meals, shopping, managing finances, etc.?: No Are you currently unemployed and looking for a job?: No Are you interested in more education?: No Please select the resources that you would like help with: None Currently or been in a relationship where the following occur: No concerns reported THRIVE Score: 0 AUDIT C Alcohol Use Questionnaire (AUDIT-C) 1. How often do you have a drink containing alcohol?: 2-3 times a week 2. How many drinks containing alcohol do you have on a typical day when you are drinking?: 3 or 4 3. How often do you have six or more drinks on one occasion?: Less than monthly Total Score: 5 SAMARA-7 AMB Questionnaire SAMARA-7 Date SAMARA - 7 assessed: 03/27/24 Feeling nervous, anxious, or on edge: 0 = Not at all Not being able to stop or control worryin = Not at all Worrying too much about different things: 0 = Not at all Trouble relaxin = Not at all Being so restless that it is hard to sit still: 0 = Not at all Becoming easily annoyed or irritable: 0 = Not at all Feeling afraid as if something awful might happen: 0 = Not at all Total SAMARA-7 score (0-4 normal; 5-9 mild; 10-14 moderate; 15-21 severe): 0 Source: Developed by Drs. Carloz Ca, Brooklynn Shukla, Dhaval Crawford and colleagues, with an educational brennan from [employer]. Physical exam (Primary Care) Vital Signs: Last Vital Signs Pulse 52 09/25/24 08:29 BP 124/72 09/25/24 08:29 Pulse Ox 96 09/25/24 08:29 Oxygen Delivery Method Room Air 09/25/24 08:29 BMI result Body Mass Index 24.8 Tobacco/Smoking Status: Tobacco use Status Tobacco use date assessed 03/27/24 09/25/24 08:33 Patient Tobacco Use Status Former Tobacco user 09/25/24 08:33 Tobacco use type Cigarette 09/25/24 08:33 e-Cigarette/Vaping Use Never Used 09/25/24 08:33 PHQ-9: PHQ-9 Score PHQ-9: Total score 0 09/25/24 08:33 Depression Screening Interpretation: Negative Thrive Assessment: Date of Thrive Assessment Date Thrive assessed 03/27/24 09/25/24 08:33 Currently or been in a relationship where the following occur: No concerns reported Const General: alert; No acute distress Eyes Conjunctivae: conjunctivae normal Resp Auscultation: clear to auscultation bilaterally Cardio Rate: regular rate Rhythm: regular rhythm GI Inspection: Yes normal to inspection Extrem General: Yes normal to inspection and No edema Coding Level of Care Code Est Pt Level 4 (37367) Complex EM visit Add On G2211 Diagnoses Essential hypertension I10 Hypertension type: essential hypertension Hypercholesterolemia E78.00 Peripheral vascular disease I73.9 Impaired glucose tolerance R73.02 Adhesive capsulitis of left shoulder M75.02 Left ankle pain M25.572 Assessment & Plan Assessment & Plan (1) Hypertension: Code(s): I10 - Essential (primary) hypertension Category: Medical Qualifiers: Hypertension type: essential hypertension Qualified Code(s): I10 - Essential (primary) hypertension Plan: Continue with blood pressure medication. Decrease salt intake and exercise on metoprolol 25 mg once a day (2) Hypercholesterolemia: Code(s): E78.00 - Pure hypercholesterolemia, unspecified Category: Medical Plan: Avoid fried foods, chicken skin, eggs, butter margarine, pastries and meat. Be it pork or beef they have a lot of cholesterol LDL goal of less than 130 and triglyceride of less than 150 on simvastatin 20 mg at bedtime (3) Peripheral vascular disease: Code(s): I73.9 - Peripheral vascular disease, unspecified Category: Medical Plan: When sitting down elevate the legs, exercise, and support stockings patient follows up with vascular also status post radiofrequency ablation of the SSA (4) Impaired glucose tolerance: Code(s): R73.02 - Impaired glucose tolerance (oral) Category: Medical Plan: Decrease the amount of carbohydrate intake, pasta, bread, rice and potatoes are all sugar and that is aside from all the sweet stuff, remember that fruits are good but they are Sweet also. (5) Adhesive capsulitis of left shoulder: Comment: Radiofrequency ablation SSA left May 2024 Code(s): M75.02 - Adhesive capsulitis of left shoulder Category: Medical Plan: Patient follows up with orthopedics and has had injections recently (6) Left ankle pain: Code(s): M25.572 - Pain in left ankle and joints of left foot Category: Medical Plan History of Present Illness The patient is a 69-year-old male presenting for a follow-up visit for management of chronic conditions and evaluation of joint issues. The patient has a history of hypertension and hypercholesterolemia, managed with metoprolol and simvastatin, respectively. His blood pressure and cholesterol levels are currently well-controlled, with LDL cholesterol at 113 mg/dL. The patient has knee osteoarthritis and follows up with an arthritis treatment center. He reports ankle arthritis with intermittent swelling, managed with an ankle brace and advised physical therapy, which he has not pursued. The patient has a history of tubular adenoma of the colon, with the last colonoscopy performed in April 2021. He was diagnosed with adhesive capsulitis of the left shoulder, for which he received an injection. He performs daily exercises to improve shoulder mobility, which has been beneficial. The patient has peripheral vascular disease and underwent radiofrequency ablation of the left great saphenous vein in May 2024. He experiences swelling in the left ankle, which is managed with compression stockings and leg elevation. Health Maintenance - Vaccinations: Pneumonia and shingles vaccines are up to date. - Blood work: Normal blood count, electrolytes, renal function, and liver enzymes. - Lipid profile: LDL cholesterol at 113 mg/dL, triglycerides within normal limits. - Echocardiogram: Normal study as of July 2023. - Colonoscopy: Last performed in April 2021. Social History - Exercise: Engages in physical activities, including exercises for shoulder mobility. - Sports history: Previously active in basketball, tennis, and softball, leading to recurrent ankle sprains. Review of Systems - Musculoskeletal: Reports ankle swelling and pain, denies significant shoulder pain post-injection. - Cardiovascular: Denies chest pain or palpitations. - Gastrointestinal: Reports normal bowel movements, denies constipation. - Neurological: Denies dizziness or balance issues. Physical Exam - Ears: No pain upon manipulation, clean with no wax accumulation. Results - Labs: Normal blood count, electrolytes, renal function, liver enzymes, and lipid profile with LDL at 113 mg/dL. - Echocardiogram: Normal study as of July 2023. - Colonoscopy: Last performed in April 2021, history of tubular adenoma. Plan The patient's hypertension is managed with metoprolol, and his blood pressure remains stable. For hypercholesterolemia, simvastatin is prescribed, maintaining LDL cholesterol below the target of 130 mg/dL. The patient is advised to continue using an ankle brace for arthritis and consider physical therapy to improve joint function, although he has opted not to pursue therapy at this time. He should continue exercises for shoulder mobility to manage adhesive capsulitis, which has shown improvement post- injection. For peripheral vascular disease, the patient underwent radiofrequency ablation and is advised to use compression stockings and elevate his legs to manage swelling. Regular follow-up with vascular and orthopedic specialists is recommended to monitor his conditions. Patient was informed and verbally consented to the use of an ambient scribe for clinic note documentation during this visit. Discussion Notes During the visit, we discussed the management of hypertension and hypercholesterolemia, emphasizing the importance of medication adherence to maintain target levels. We reviewed the patient's joint issues, including knee and ankle arthritis, and the benefits of physical therapy and exercise for joint health. The patient was informed about the management of peripheral vascular disease, including the use of compression stockings and leg elevation to reduce swelling. Patient Instructions - Continue taking metoprolol and simvastatin as prescribed. - Use an ankle brace and consider physical therapy for arthritis management. - Perform daily exercises for shoulder mobility. - Use compression stockings and elevate legs to manage swelling. - Schedule regular follow-ups with vascular and orthopedic specialists.
--- OUTSIDE RECORDS SUMMARY | 2024-09-25 09:09 | XMS_ITS | Patient Health Record ---
Author Organization [facility] Address [address] [place] [address] Care Team Providers Care Basket Maker Name Role Phone Po Micheal MCCAIN Primary Care Provider Carloz Salgado [phone] Allergies Allergen (clinical drug ingredient) Drug/Non Drug Allergy documented on EMR Reaction Allergy Type Onset Date Status Penicillin Unknown Drug Allergy Active Reason For Referral No [...] even ing Orally Once a day Active Immunizations Vaccine Route Administration Date Status Comme nts Influenza Unknown 11/19/2020 Administered Social History Alcohol Screen Question Answer Notes Did you [...] Never (0 point) Points 2 Interpretation Negative Section Notes: Nonsmoker; occ. alcohol Nonsmoker; occ. alcohol Nonsmoker; occ. alcohol Problems Problem Type SNOMED Code ICD Code Onset Dates Problem Status W/U Status Risk Notes Problem 327626556 Encounter for screening for malignant neoplasm of colon (Z12.11) Active confirmed Problem 037937751 History of adenomatous polyp of colon (Z86.010) Active confirmed Problem Screening for malignant neoplasm of rectum (143891427) Encounter for screening for malignant neoplasm of rectum (Z12.12) Active confirmed Problem 14477658 Preprocedural examination (Z01.818) Active confirmed Problem Diverticulosis of colon (982016388) Diverticulosis of colon (K57.30) Active confirmed Problem 54607011 Cough (R05.9) Active confirmed Problem 213639674 Chronic throat clearing (R68.89) Active confirmed Plan Of Treatment Pending Test Test Name Order Date Pathology 04/13/2021 Future Test Test Name Order Date COLONOSCOPY 02/28/2015 COLONOSCOPY 03/12/2021 Insurance Providers Payer Name Payer Address Payer Phone Subscriber Number Group Number Insured Name Patient Relationship to Insured Coverage Start Date Coverage End Date [facility] [address] [place] [address] [id number] AUBNDIO KELLER Self - patient is the insured Medical (General) History Medical History History ICD Code Colonoscopy 10/2004 with 2 tubular adenom as removed Colonoscopy 11-21-2009--mild diverticulo sis and internal hemorrhoids Hypertension Denies [place],DM,CVA,Lung disease,renal dise ase Hyperlipidemia Negative colonoscopy in 04/2015 Superficial clots in LE's/Phlebitis--on Xarelto once Surgical History Surgery Date(Month/Year) shoulder surgery hernia repair vasectomy knee left surgery 2015 knee replacement 11/2018
--- OUTSIDE RECORDS SUMMARY | 2024-09-25 09:10 | XMS_ITS | Patient Health Record ---
[facility] Address [address] [place] [address] Care Team Providers Care Fire Ranger Name Role Phone Micheal Rush Primary Care Provider Naomie Young Unavailable [phone] Allergies Allergen (clinical drug ingredient) Drug/Non Drug Allergy documented on EMR Reaction Allergy Type Onset Date Status Penicillin hives Drug Allergy Active Reason For Referral No Information Medications Medication SIG (Take, Route, Frequency, Duration) Notes Start Date End Date Status Losartan Potassium 50 MG 1 tablet Orally Once a day; Duration: 30 day(s) Active Simvastatin 10 MG 1 tablet in the even ing Orally Once a day; Duration: 30 day(s) Active Immunizations Vaccine Route Administration [...] Problem Status W/U Status Risk Notes Problem Localized, primary osteoarthritis of the ankle and/or foot (927663551) Osteoarthritis of right ankle 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) Active confirmed Problem Localized, primary osteoarthritis of the ankle and/or foot (333507036) Osteoarthritis of left ankle and foot (M19.072) Active confirmed Plan Of Treatment Pending Test Test Name Order Date X ray : Foot, left 3V 11/04/2020 X ray : Foot, right 3V 11/04/2020 79647, J0702- INJECT or DRAIN, JOINT/BUR SA 11/04/2020 Insurance Providers Payer Name Payer Address Payer Phone Subscriber Number Group Number Insured Name Patient Relationship to Insured Coverage Start Date Coverage End Date [employer] [place] [employer]age [facility] [address] [place] [place] [address] [id number] Tyler Jerry Self - patient is the insured Medical (General) History Medical History History ICD Code Arthritis Back,Hip,and Knee pain CAD (Cholesterol) Chicken pox Hiatal hernia High blood pressure Joint implants/screws Vascular phlebitis (clots) Surgical History Surgery Date(Month/Year) knee replacement
== END 2024-09-25 08:50 | disposition home or self-care (01) ==
LOC: HO.HMCH 08:26
PROVIDERS: PCP Internal Medicine; Visit Provider Internal Medicine
DX: I10 Essential (primary) hypertension (principal); E78.00 Pure hypercholesterolemia, unspecified; I73.9 Peripheral vascular disease, unspecified; R73.02 Impaired glucose tolerance (oral); M75.02 Adhesive capsulitis of left shoulder; M25.572 Pain in left ankle and joints of left foot

== ENCOUNTER → 2024-09-25 08:25 | Outpatient (BNVA) | payer MEDICARE, SELFPAY | PROVIDERS: PCP Internal Medicine; Visit Provider Internal Medicine | DX: I10 Essential (primary) hypertension (principal); I73.9 Peripheral vascular disease, unspecified; E78.00 Pure hypercholesterolemia, unspecified; R73.02 Impaired glucose tolerance (oral); M75.02 Adhesive capsulitis of left shoulder; M25.572 Pain in left ankle and joints of left foot | CPT/HCPCS: 96127; 99212 ==

== ENCOUNTER 2024-09-25 09:09 | Outpatient (AMB) | payer MEDICARE, SELFPAY | END 2024-09-25 09:56 | disposition home or self-care (01) | LOC: HO.HMGAL 09:09 | PROVIDERS: PCP Internal Medicine; Visit Provider Registered Nurse Emergency | DX: J30.89 Other allergic rhinitis (principal) | CPT/HCPCS: 95117; 95165 ==

== ENCOUNTER 2024-10-22 16:09 | Outpatient (AMB) | payer MEDICARE, SELFPAY ==
--- OUTSIDE RECORDS SUMMARY | 2024-10-22 21:18 | XMS_ITS | Patient Health Record ---
Author Organization [facility] Address [address] [place] [address] Care Team Providers Care Edi Analyst Name Role Phone Po Micheal MCCAIN Primary Care Provider Carloz Salgado [phone] Allergies Allergen (clinical drug ingredient) Drug/Non Drug [...] Problem Status W/U Status Risk Notes Problem 482415574 Encounter for screening for malignant neoplasm of colon (Z12.11) Active confirmed Problem 403222435 History of adenomatous polyp of colon (Z86.010) Active confirmed Problem Screening for malignant neoplasm of rectum (053681643) Encounter for screening for malignant neoplasm of rectum (Z12.12) Active confirmed Problem 25195186 Preprocedural examination (Z01.818) Active confirmed Problem Diverticulosis of colon (617066221) Diverticulosis of colon (K57.30) Active confirmed Problem 68500887 Cough (R05.9) Active confirmed Problem 634055749 Chronic throat clearing (R68.89) Active confirmed Plan Of Treatment Pending Test Test Name Order Date Pathology 04/13/2021 Future Test Test Name Order Date COLONOSCOPY 02/28/2015 COLONOSCOPY 03/12/2021 Insurance Providers Payer Name Payer Address Payer Phone Subscriber Number Group Number Insured Name Patient Relationship to Insured Coverage Start Date Coverage End Date [facility] [address] [place] [address] [id number] ABUNDIO KELLER Self - patient is the insured Medical (General) History Medical History History ICD Code Colonoscopy 10/2004 with 2 tubular adenom as removed Colonoscopy 11-21-2009--mild diverticulo sis and internal hemorrhoids Hypertension Denies [place],DM,CVA,Lung disease,renal dise ase Hyperlipidemia Negative colonoscopy in 04/2015 Superficial clots in LE's/Phlebitis--on Xarelto once Surgical History Surgery Date(Month/Year) shoulder surgery hernia repair vasectomy knee left surgery 2015 knee replacement 11/2018
--- OUTSIDE RECORDS SUMMARY | 2024-10-22 21:18 | XMS_ITS | Patient Health Record ---
Author [facility] Address [address] [place] [address] Care Team Providers Care Automobile Carpets Molder Name Role Phone Micheal Rush Primary Care Provider Naomie Young Unavailable [phone] Allergies Allergen (clinical drug ingredient) Drug/Non Drug [...] primary osteoarthritis of the ankle and/or foot (498223890) Osteoarthritis of right ankle 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) Active confirmed Problem Localized, primary osteoarthritis of the ankle and/or foot (501205927) Osteoarthritis of left ankle and foot (M19.072) Active confirmed Plan Of Treatment Pending Test Test Name Order Date X ray : Foot, left 3V 11/04/2020 X ray : Foot, right 3V 11/04/2020 49114, J0702- INJECT or DRAIN, JOINT/BUR SA 11/04/2020 Insurance Providers Payer Name Payer Address Payer Phone Subscriber Number Group Number Insured Name Patient Relationship to Insured Coverage Start Date Coverage End Date [employer] [place] Medicare [employer]vantage [facility] [address] [facility] [place] [address] [id number] Tyler Jerry Self - patient is the insured Medical (General) History Medical History History ICD Code Arthritis Back,Hip,and Knee pain CAD (Cholesterol) Chicken pox Hiatal hernia High blood pressure Joint implants/screws Vascular phlebitis (clots) Surgical History Surgery Date(Month/Year) knee replacement
== END 2024-10-22 16:10 | disposition home or self-care (01) ==
LOC: HO.HMGAL 16:09
PROVIDERS: PCP Internal Medicine; Visit Provider Registered Nurse Emergency
DX: J30.89 Other allergic rhinitis (principal)
CPT/HCPCS: 95117; 95165

== ENCOUNTER 2024-11-12 08:35 | Outpatient (AMB) | payer MEDICARE, SELFPAY ==
--- OUTSIDE RECORDS SUMMARY | 2024-11-12 09:14 | XMS_ITS | Patient Health Record ---
Author Organization [facility] Address [address] [place] [address] Care Team Providers Care Decator Operator Name Role Phone Po Micheal MCCAIN Primary Care Provider Carloz Salgado [phone] Allergies Allergen (clinical drug ingredient) Drug/Non Drug [...] Problem Status W/U Status Risk Notes Problem 410821351 Encounter for screening for malignant neoplasm of colon (Z12.11) Active confirmed Problem 138709266 History of adenomatous polyp of colon (Z86.010) Active confirmed Problem Screening for malignant neoplasm of rectum (965249357) Encounter for screening for malignant neoplasm of rectum (Z12.12) Active confirmed Problem 80940635 Preprocedural examination (Z01.818) Active confirmed Problem Diverticulosis of colon (853289089) Diverticulosis of colon (K57.30) Active confirmed Problem 75144837 Cough (R05.9) Active confirmed Problem 702828507 Chronic throat clearing (R68.89) Active confirmed Plan Of Treatment Pending Test Test Name Order Date Pathology 04/13/2021 Future Test Test Name Order Date COLONOSCOPY 02/28/2015 COLONOSCOPY 03/12/2021 Insurance Providers Payer Name Payer Address Payer Phone Subscriber Number Group Number Insured Name Patient Relationship to Insured Coverage Start Date Coverage End Date [facility] [address] [place] [address] [phone] [id number] ABUNDIO KELLER Self - patient is the insured Medical (General) History Medical History History ICD Code Colonoscopy 10/2004 with 2 tubular adenom as removed Colonoscopy 11-21-2009--mild diverticulo sis and internal hemorrhoids Hypertension Denies [place],DM,CVA,Lung disease,renal dise ase Hyperlipidemia Negative colonoscopy in 04/2015 Superficial clots in LE's/Phlebitis--on Xarelto once Surgical History Surgery Date(Month/Year) shoulder surgery hernia repair vasectomy knee left surgery 2015 knee replacement 11/2018
--- OUTSIDE RECORDS SUMMARY | 2024-11-12 09:14 | XMS_ITS | Patient Health Record ---
[facility] Address [address] [facility] [place] [address] Care Team Providers Care Supplier Diversity Director Name Role Phone Micheal Rush Primary Care Provider Naomie Young Unavailable [phone] Allergies Allergen (clinical drug ingredient) Drug/Non Drug [...] primary osteoarthritis of the ankle and/or foot (606183936) Osteoarthritis of right ankle 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) Active confirmed Problem Localized, primary osteoarthritis of the ankle and/or foot (868731641) Osteoarthritis of left ankle and foot (M19.072) Active confirmed Plan Of Treatment Pending Test Test Name Order Date X ray : Foot, left 3V 11/04/2020 X ray : Foot, right 3V 11/04/2020 31018, J0702- INJECT or DRAIN, JOINT/BUR SA 11/04/2020 Insurance Providers Payer Name Payer Address Payer Phone Subscriber Number Group Number Insured Name Patient Relationship to Insured Coverage Start Date Coverage End Date [employer] [place] [employer]vantage [facility] [address] [facility] [place] [address] [id number] Tyler Jerry Self - patient is the insured Medical (General) History Medical History History ICD Code Arthritis Back,Hip,and Knee pain CAD (Cholesterol) Chicken pox Hiatal hernia High blood pressure Joint implants/screws Vascular phlebitis (clots) Surgical History Surgery Date(Month/Year) knee replacement
== END 2024-11-12 08:36 | disposition home or self-care (01) ==
LOC: HO.HMGAL 08:35
PROVIDERS: PCP Internal Medicine; Visit Provider Registered Nurse Emergency
DX: J30.89 Other allergic rhinitis (principal)
CPT/HCPCS: 95117; 95165

== ENCOUNTER 2024-12-03 10:49 | Outpatient (AMB) | payer MEDICARE, SELFPAY ==
--- OUTSIDE RECORDS SUMMARY | 2024-12-03 13:22 | XMS_ITS | Patient Health Record ---
Author Organization [facility] Address [address] [place] [address] Care Team Providers Care Wheat Shipper Name Role Phone Po Micheal MCCAIN Primary Care Provider Carloz Salgado [phone] Allergies Allergen (clinical drug ingredient) Drug/Non Drug Allergy documented on EMR Reaction Allergy Type Onset Date Status Penicillin Unknown Drug Allergy Active Reason For Referral No Information Medications Medication SIG (Take, Route, Frequency, Duration) Notes Start Date End Date Status Losartan Potassium 50 MG Orally Active Vitamin D Active Vitamin E 100 UNIT 1 capsule Orally Onc e a day; Duration: 30 day(s) Active Vitamin B + C [...] Problem Status W/U Status Risk Notes Problem Screening for malignant neoplasm of colon (909209999) Encounter for screening for malignant neoplasm of colon (Z12.11) Active confirmed Problem History of adenomatous polyp of colon (591139657) History of adenomatous polyp of colon (Z86.010) Active confirmed Problem Screening for malignant neoplasm of rectum (678829470) Encounter for screening for malignant neoplasm of rectum (Z12.12) Active confirmed Problem Preprocedural examination (503942037754543) Preprocedural examination (Z01.818) Active confirmed Problem Diverticulosis of colon (977525028) Diverticulosis of colon (K57.30) Active confirmed Problem Cough (11418111) Cough (R05.9) Active confirmed Problem Symptom: generalized (224915498) Chronic throat clearing (R68.89) Active confirmed Plan Of Treatment Pending Test Test Name Order Date Pathology 04/13/2021 Future Test Test Name Order Date COLONOSCOPY 02/28/2015 COLONOSCOPY 03/12/2021 Insurance Providers Payer Name Payer Address Payer Phone Subscriber Number Group Number Insured Name Patient Relationship to Insured Coverage Start Date Coverage End Date [facility] [address] [place] [address] [phone] [id number] ABUNDIO KELLER Self - patient is the insured Medical (General) History Medical History History ICD Code Colonoscopy 10/2004 with 2 tubular adenom as removed Colonoscopy 11-21-2009--mild diverticulo sis and internal hemorrhoids Hypertension Denies [place],DM,CVA,Lung disease,renal dise ase Hyperlipidemia Negative colonoscopy in 04/2015 Superficial clots in LE's/Phlebitis--on Xarelto once Surgical History Surgery Date(Month/Year) shoulder surgery hernia repair vasectomy knee left surgery 2015 knee replacement 11/2018
--- OUTSIDE RECORDS SUMMARY | 2024-12-03 13:22 | XMS_ITS | Patient Health Record ---
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) Active confirmed Plan Of Treatment Pending Test Test Name Order Date X ray : Foot, left 3V 11/04/2020 X ray : Foot, right 3V 11/04/2020 47982, J0702- INJECT or DRAIN, JOINT/BUR SA 11/04/2020 Insurance Providers Payer Name Payer Address Payer Phone Subscriber Number Group Number Insured Name Patient Relationship to Insured Coverage Start Date Coverage End Date [employer] [place] [employer]age [facility] [address] [facility] [place] [address] [id number] Tyler Jerry Self - patient is the insured Medical (General) History Medical History History ICD Code Arthritis Back,Hip,and Knee pain CAD (Cholesterol) Chicken pox Hiatal hernia High blood pressure Joint implants/screws Vascular phlebitis (clots) Surgical History Surgery Date(Month/Year) knee replacement
== END 2024-12-03 10:49 | disposition home or self-care (01) ==
LOC: HO.HMGAL 10:49
PROVIDERS: PCP Internal Medicine; Visit Provider Registered Nurse Emergency
DX: J30.89 Other allergic rhinitis (principal)
CPT/HCPCS: 95117; 95165

== ENCOUNTER 2024-12-24 09:31 | Outpatient (AMB) | payer MEDICARE, SELFPAY | END 2024-12-24 09:32 | disposition home or self-care (01) | LOC: HO.HMGAL 09:31 | PROVIDERS: PCP Internal Medicine; Visit Provider Registered Nurse Emergency | DX: J30.89 Other allergic rhinitis (principal) | CPT/HCPCS: 95117; 95165 ==

== ENCOUNTER 2024-12-31 08:46 | Outpatient (AMB) | payer MEDICARE, SELFPAY ==
[2024-12-31 09:11] VITALS: BP 130/68; PULSE 58; O2SAT 98; BMI 24.8
--- NOTE | 2024-12-31 09:11 | A.OFFPC_ITS ---
Vital Signs 12/31/24 09:11 Height 6 ft 1 in Weight 188 lb BMI 24.8 BP 130/68 Blood Pressure Location Lt brachial Position Sitting Pulse 58 Pulse Source Pulse Oximeter Pulse Oximetry (%) 98 Oxygen Delivery Method Room Air Intake Visit Reasons: Annual Exam Allergies losartan Allergy (Intermediate, Verified 12/31/24 09:12) cough lisinopril (LISINOPRIL) Allergy (Unknown, Verified 12/31/24 09:12) UNKNOWN penicillin G (Penicillin G) Allergy (Unknown, Verified 12/31/24 09:12) RASH,HIVES penicillin V Allergy (Unknown, Verified 12/31/24 09:12) Unknown tadalafil Adverse Reaction (Severe, Verified 12/31/24 09:12) Leg cramps Medication List - Last Reconciled 12/31/24 by Micheal Rush MD albuterol sulfate 90 mcg/actuation 1 inh inhalation Q4-6H PRN cholecalciferol (vitamin D3) 25 mcg PO DAILY ketotifen fumarate 0.025%(0.035%) ([place]away) 1 drp ophthalmic (eye) Q12H loratadine (Claritin) 10 mg PO DAILY metoprolol succinate ER 25 mg PO DAILY 90 days qktsspxd-tei-zuylnun sulfate 4.5 mg iron (One Daily Multivitamins with Minerals) tabs PO simvastatin 20 mg PO BEDTIME tadalafil 5 mg PO DAILY PRN 90 days Tobacco use date assessed: 03/27/24 Fall risk assessment: No Falls in past year Last assessed Fall Risk: 12/31/24 Dental Screening Dental Screen Date: 03/27/24 HPI Annual Exam HPI Details L ankle had a shot and was told OA L ankle HPI Comments History of Present Illness Details History of Present Illness The patient is a 69 year old individual presenting for a physical exam. The patient's medical history includes hypertension, hypercholesterolemia, knee osteoarthritis, generalized anxiety disorder, peripheral vascular disease, and recurrent idiopathic lumbar pain. The patient has a history of intolerance to losartan and lisinopril, which caused a cough. The patient has a history of tubular adenoma of the colon, with the last colonoscopy performed in April 2021. The patient has arthritis in both feet and ankles, with the left ankle having been more symptomatic with swelling. An orthopedist diagnosed severe arthritis via X-ray and administered an injection in the ankle. The patient finds that an ankle brace helps with the symptoms. The patient also receives occasional injections for arthritis in the shoulder, knee, and hand. For allergies, the patient receives desensitization shots but continues to experience a runny nose, particularly in the mornings during the fall. The patient also uses loratadine. The patient reports a lifelong history of intermittent dysphagia, described as a sensation of food going down the wrong pipe, which has not worsened. Last blood work was in September, which showed a normal blood count, no anemia, normal electrolytes, creatinine of 1.01, normal blood sugar, good liver function, an LDL of 113, and a PSA of 0.6. The patient's weight has been stable. Health Maintenance The patient is up to date on shingles, tetanus, and pneumonia vaccinations. The patient will receive a flu shot today. A request for labs will be placed, to be completed in six months. The patient was counseled on the importance of adequate water intake, healthy diet, and remaining physically active. Provided anticipa tory guidance regarding the upcoming flu season. Social History - Alcohol Use: Reports drinking two or t hree alcoholic beverages per week and may have a couple of beers after playing golf. - Tobacco Use: Denies ever smoking cigar ettes. - Illicit Drug Use: Denies the use of re creational drugs. - Diet: Reports trying to eat healthy, c onsuming a lot of fruit and vegetables, and not eating fried foods often. - Exercise: Stays active by playing golf and was encouraged to keep moving despite arthritis. Results - Labs from September 20: CBC was normal with no anemia. - Electrolytes were normal. - Renal function was normal with a creat inine of 1.01. - Blood sugar was normal. - Liver function tests were good. - LDL cholesterol was 113. - Prostate-specific antigen (PSA) was 0. 6. - Imaging: Recent ankle X-rays performed by an orthopedist showed bad arthritis. [facility] Medical History Varicose veins of left lower extremity with inflammation Encounter for abdominal aortic aneurysm (AAA) screening Left leg swelling Upper respiratory tract infection Right knee meniscal tear Pulmonary nodule Hemorrhoids GERD (gastroesophageal reflux disease) Tubular adenoma of colon Hearing impairment Anxiety Thrombophlebitis leg Knee osteoarthritis Hypercholesterolemia Hypertension Surgical History Status post ablation of incompetent vein using laser (08/28/21) History of knee replacement procedure of right knee S/P medial meniscectomy of right knee Hx of shoulder surgery History of vasectomy History of inguinal hernia repair Family History Father No problems noted. Mother Hypertension Paternal Grandmother Pancreatic cancer Social History (Updated 12/31/24 @ 09:23 by Micheal Rush MD) Housing: House Alcohol intake: current Alcohol intake frequency: holidays/special occasions only Comment: 2-3 drinks a week Patient Tobacco Use Status: Former Tobacco user Tobacco use type: Cigarette Years Smoked: 2012 quit e-Cigarette/Vaping Use: Never Used Second Hand Smoke Exposure: Yes service: No Current occupational status: retired Cognitive needs: No Hearing needs: Yes Vision needs: Yes Questionnaire Thrive Questionnaire Date Thrive assessed: 03/27/24 I am a: Patient What is your living situation today?: I have a steady place to live Within the past 12 months, did the food you bought not last and you didn't have the money to get more?: Never true Within the past 12 months, did you worry whether your food would run out before you got money to buy more?: Never true Do you have trouble paying for medicines?: No Do you have trouble getting transportation to medical appointments?: No Do you have trouble paying your heating and electricity bill?: No Do you have trouble taking care of your child, family member or friend?: No Do you have trouble with day-to-day activities such as bathing, preparing meals, shopping, managing finances, etc.?: No Are you currently unemployed and looking for a job?: No Are you interested in more education?: No Please select the resources that you would like help with: None Currently or been in a relationship where the following occur: No concerns reported THRIVE Score: 0 SAMARA-7 AMB Questionnaire SAMARA-7 Date SAMARA - 7 assessed: 03/27/24 Source: Developed by Drs. Carloz Ca, Brooklynn Shukla, Dhaval Crawford and colleagues, with an educational brennan from [email or web address]. Review of Systems Narrative Review of Systems - Constitutional: Denies fever, dizziness, or syncope. - Allergic/Immunologic: Reports persistent rhinorrhea and throat clearing despite allergy treatments, worse in the morning during the fall. - Respiratory: Denies dyspnea, including waking up short of breath, and denies chest tightness. - Cardiovascular: Denies chest pain, chest heaviness, and heartburn. - Gastrointestinal: Reports intermittent dysphagia with a sensation of food 'going down the wrong hole,' which has been lifelong and is not worsening. - Denies nausea or vomiting. - Reports good bowel movements. - Genitourinary: Reports nocturia, waking up once or twice a night to urinate. - Musculoskeletal: Reports pain in both feet due to arthritis. - Reports pain is starting in the other knee. Const Denies poor appetite and Denies weakness Eyes Denies no additional complaints ENT Reports Normal hearing present, Denies dizziness, Denies nasal congestion, Denies tinnitus and Denies sore throat Card Denies chest pain, Denies syncope, Denies rapid heart rate and Denies dyspnea Resp Denies cough and Denies dyspnea GI Denies change in stool character, Reports constipation, Denies diarrhea, Denies nausea and Denies vomiting Denies dysuria and Denies urinary frequency Neuro Reports Normal hearing present, Denies confusion, Denies dizziness, Denies syncope and Denies weakness Psych Denies confusion Physical exam (Primary Care) Vital Signs: Last Vital Signs Pulse 58 12/31/24 09:11 BP 130/68 12/31/24 09:11 Pulse Ox 98 12/31/24 09:11 Oxygen Delivery Method Room Air 12/31/24 09:11 BMI result Body Mass Index 24.8 Tobacco/Smoking Status: Tobacco use Status Tobacco use date assessed 03/27/24 12/31/24 09:13 Patient Tobacco Use Status Former Tobacco user 12/31/24 09:23 Tobacco use type Cigarette 12/31/24 09:23 e-Cigarette/Vaping Use Never Used 12/31/24 09:23 Thrive Assessment: Date of Thrive Assessment Date Thrive assessed 03/27/24 12/31/24 09:13 Currently or been in a relationship where the following occur: No concerns reported Narrative Physical Exam General: Cooperative, healthy appearing, comfortable, no acute distress and well developed Orientation: Patient oriented x3 Limitations: No limitations Head: Normal to inspection Ears: Hearing grossly normal bilaterally Nose: Normal external nose present, but patient reports nose running in the morning Face and sinus: Normal facial exam Eyes: Appearance normal, both eyes and all related structures Neck: Normal visual inspection and Yes full ROM Respiratory: Normal respiratory effort and able to speak in complete sentences. Clear to auscultation bilaterally. Patient reports occasional use of albuterol for breathing issues, but lungs are clear Cardiovascular: Regular rate and rhythm. Normal S1 and S2 GI: Normal to inspection. Soft to palpation and nontender Skin: No rashes or lesions noted, but skin is dry; advised to use lotion Neuro: Patient oriented x3 Extremities: Normal to inspection, but reports arthritis in both feet and left ankle, with occasional swelling in left ankle. Ankle brace used occasionally. Reports pain in other knee. Const General: No confusion Orientation/consciousness: No confusion HENMT Head: Yes normocephalic Ears: external ears normal and TM's normal bilaterally Face and sinus: Yes normal facial exam Mouth: moist mucous membranes Throat: Yes tonsils normal Eyes Conjunctivae: conjunctivae normal Pupils: Equal, round and reactive pupils present and Pupil accommodation reflex normal Direct Ophthalmoscopy: normal light reflex Neck Neck: No lymphadenopathy Thyroid: Thyroid normal Chest Chest palpation & inspection: normal inspection of the chest Resp Effort & Inspection: normal respiratory effort and no audible wheezes Auscultation: clear to auscultation bilaterally, no crackles, no wheezes and lung sounds not diminished Cardio Rate: regular rate Rhythm: regular rhythm Peripheral pulses: radial pulses present and dorsalis pedis present GI Palpation (GI): no masses Auscultation: normal bowel sounds and normoactive bowel sounds Rectal Exam - Male: Yes deferred Skin General skin exam: no rashes or lesions noted Rashes: no rashes Neuro General: No confusion Cranial nerves: Yes Equal, round and reactive pupils present and Yes Normal hearing present Cognition (Neuro): normal cognition Gait exam (Neuro): Normal gait present Motor exam (neuro): 5/5 motor strength present throughout Deep tendon reflexes (DTR's): Right brachioradialis reflex intensity grade: 2+, Left brachioradialis reflex intensity grade: 2+, Right patellar reflex intensity grade: 2+ and Left patellar reflex intensity grade: 2+ Extrem General: No edema Office Procedures Flu Questionnaire Does the patient have a severe egg allergy?: No Does the patient have severe life threatening allergies?: No Does the patient have a fever or illness today?: No Has the patient ever had Guillain-Jackson Syndrome?: No Has the patient ever had any past reaction to a flu shot?: No Immunizations Fluarix [id number] (PF) 45 mcg (15 mcg x 3)/0.5 mL IM syringe Performing Provider: Micheal Rush MD [facility] Administered by: Jessica Swann CMA on 12/31/24 09:42 Dose Route Admin Location Dispensed Lot Number Expiration Date NDC [employer] Specialist 0.5 mL IM Left Deltoid 0.5 mL [id number] 08/06/25 [id number] [employer] VIS Given Date VIS Provided VIS Publication Date 12/31/24 Single Vaccine 24 Eligibility Eligibility Date Funding Source Not [facility] Eligible 12/31/24 Private Coding Level of Care Code Est Pt Prev Care 40-64y(03774) Diagnoses Annual physical exam Z00.00 Allergy desensitization therapy Z51.6 Impaired glucose tolerance R73.02 Hypercholesterolemia E78.00 Essential hypertension I10 Hypertension type: essential hypertension Peripheral vascular disease I73.9 Assessment & Plan Assessment & Plan (1) Annual physical exam: Code(s): Z00.00 - Encounter for general adult medical examination without abnormal findings Category: Medical Plan: Patient is advised to eat healthy, keep well hydrated, keep active and have adequate sleep. (2) Allergy desensitization therapy: Comment: Dr. Cummins allergy shots Code(s): Z51.6 - Encounter for desensitization to allergens Category: Medical Plan: Continue with the allergy shots (3) Impaired glucose tolerance: Code(s): R73.02 - Impaired glucose tolerance (oral) Category: Medical Plan: Decrease the amount of carbohydrate intake, pasta, bread, rice and potatoes are all sugar and that is aside from all the sweet stuff, remember that fruits are good but they are Sweet also. (4) Hypercholesterolemia: Code(s): E78.00 - Pure hypercholesterolemia, unspecified Category: Medical Plan: Avoid fried foods, chicken skin, eggs, butter margarine, pastries and meat. Be it pork or beef they have a lot of cholesterol on simvastatin 20 mg once a day LDL goal of less than 130 and triglyceride of less than 150 (5) Hypertension: Code(s): I10 - Essential (primary) hypertension Category: Medical Qualifiers: Hypertension type: essential hypertension Qualified Code(s): I10 - Essential (primary) hypertension Plan: Continue with blood pressure medication. Decrease salt intake and exercise on metoprolol 25 mg once a day (6) Peripheral vascular disease: Code(s): I73.9 - Peripheral vascular disease, unspecified Category: Medical Plan: When sitting down elevate the legs, exercise, and support stockings Plan Plan Patient was informed and verbally consented to the use of an ambient scribe for clinic note documentation during this visit. 1. Hypercholesterolemia The patient is on simvastatin 20 mg once a day, with a recent LDL of 113, which is within the goal of less than 130. A new prescription for simvastatin will be sent to the pharmacy. 2. Essential (Primary) Hypertension The patient will continue metoprolol 25 mg once a day. The blood pressure is noted to be fine. 3. Osteoarthritis The patient reports multifocal arthritis affecting the knees, ankles, feet, shoulder, and hand. The patient has previously seen orthopedics and an arthritis center for management, including injections and an ankle brace, which seems to help. The patient was encouraged to continue staying active. 4. Allergic Rhinitis The patient will continue with allergy desensitization shots and can use loratadine as needed. The lungs are clear on exam, and the patient denies sh ortness of breath or chest tightness; therefore, an albuterol inhaler is not indicated at this time and will be held. 5. History Of Tubular Adenoma Of Colon The patient's last colonoscopy was in April 2021. No change in management or new screening was discussed; continue routine surveillance. 6. Xerosis Cutis The patient was advised to apply lotion to the skin to prevent irritation, especially during cold weather. Discussion Notes I reviewed the patient's history and prior lab results from September, which were reassuringly normal, including the CBC, metabolic panel, and an LDL of 113. We will plan to recheck blood work in about six months, and I will place the order for that now. We discussed the management of the patient's hypercholesterolemia and hypertension, and I confirmed that a refill for simvastatin will be sent to the pharmacy. The patient's multifocal arthritis was discussed, including the prior evaluation by an orthopedist for ankle pain. I encouraged the patient to remain active, as this is important for managing arthritis symptoms. Regarding the patient's persistent runny nose despite allergy shots, we discussed the possibility of an albuterol inhaler. However, since the lungs are clear and there is no report of breathing difficulty or tightness, I advised that it is not needed at this time. I noted the presence of dry skin during the exam and recommended using lotion to prevent future irritation. We completed health maintenance updates; the patient is up to date on most vaccinations and received a flu shot during the visit. I also provided lifestyle guidance on hydration, diet, and activity, and gave anticipatory guidance for the upcoming flu season. Patient Instructions - Continue taking your current medications as prescribed, including metoprolol for blood pressure and simvastatin for cholesterol. - A refill for your simvastatin (cholesterol medication) will be sent to your pharmacy. - You will receive your annual flu shot today. - You should have your blood work done in about six months. - Continue with your allergy shots. - For your dry skin, please use lotion regularly to keep it from getting itchy or irritated, especially as the weather gets colder. - It is very important to keep moving and stay active, even with your arthritis pain. - Remember to drink about six to eight glasses of water every day and continue to eat a healthy diet. - Be careful as flu season begins in January and lasts until May. - You do not need a new breathing inhaler at this time, as your lungs sound clear. Orders: Orders Hemoglobin A1c 6 Months R73.02 - Impaired glucose tolerance (oral) Comprehensive Met. Panel 6 Months R73.02 - Impaired glucose tolerance (oral) Lipid Panel 6 Months E78.00 - Pure hypercholesterolemia, unspecified, R73.02 - Impaired glucose tolerance (oral) Complete Blood Count Auto Diff 6 Months R73.02 - Impaired glucose tolerance (oral) Thyroid Stimulating Hormone 6 Months R73.02 - Impaired glucose tolerance (oral) Free T4 (Free Thyroxine) 6 Months R73.02 - Impaired glucose tolerance (oral) Vitamin B12 and Folate 6 Months R73.02 - Impaired glucose tolerance (oral) Prostate Specific Antigen Scr 6 Months R73.02 - Impaired glucose tolerance (oral) UA CC w/rflx Micro + Cult 6 Months R30.0 - Dysuria, R73.02 - Impaired glucose tolerance (oral) Influenza [id number] Immunization Today Z23 - Encounter for immunization Medications: Refilled simvastatin 20 mg PO BEDTIME 90 tabs 3RF R73.02 - Impaired glucose tolerance (oral) Discontinued albuterol sulfate 90 mcg/actuation Discontinued Reason: Patient Completed Course 1 inh inhalation Q4-6H PRN 1 ea 0RF shortness of breath or wheezing
--- OUTSIDE RECORDS SUMMARY | 2024-12-31 09:15 | XMS_ITS | Patient Health Record ---
Author Organization [facility] Address [address] [place] [address] Care Team Providers Care Opal Miner Name Role Phone Po Micheal MCCAIN Primary Care Provider Carloz Salgado [phone] Allergies Allergen (clinical drug ingredient) Drug/Non Drug Allergy documented on EMR Reaction Allergy Type Onset Date Status Penicillin Unknown Drug Allergy Active Reason For Referral No Information Medications Medication SIG (Take, Route, Frequency, Duration) Notes Start Date End Date Status Losartan Potassium 50 MG Tablet Orally Active Vitamin D Active Vitamin E 100 UNIT Capsule 1 capsule Ora lly Once a day; Duration: 30 day(s) Active Vitamin B + C Complex - Tablet as directed Orally Active Simvastatin 20 MG Tablet 1 tablet in the evening Orally Once a day Active Immunizations Vaccine Route Administration Date Status Comme nts Influenza Unknown 11/19/2020 Administered Social History Social History Drugs/Alcohol: Social Info Question Answer Notes Alcohol Screen Did you have a drink containing alcohol in the past year? Yes How often did you have a drink containing alcohol in the past year? 2 to 4 times a month (2 points) How many drinks did you have on a typical day when you were drinking in the past year? 1 or 2 drinks (0 point) How often did you have 6 or more drinks on one occasion in the past year? Never (0 point) Points 2 Interpretation Negative Additional Details Category Social Info Options Details Miscellaneous: Marital status: Occupation: Retired Section Notes: Nonsmoker; occ. alcohol Nonsmoker; occ. alcohol Nonsmoker; occ. alcohol Problems Problem Type SNOMED Code ICD Code Onset Dates Problem Status W/U Status Risk Notes Problem Screening for malignant neoplasm of colon (670354867) Encounter for screening for malignant neoplasm of colon (Z12.11) Active confirmed Problem History of adenomatous polyp of colon (066088552) History of adenomatous polyp of colon (Z86.010) Active confirmed Problem Screening for malignant neoplasm of rectum (749525205) Encounter for screening for malignant neoplasm of rectum (Z12.12) Active confirmed Problem Preprocedural examination (692057887876055) Preprocedural examination (Z01.818) Active confirmed Problem Diverticulosis of colon (441242838) Diverticulosis of colon (K57.30) Active confirmed Problem Cough (91868421) Cough (R05.9) Active confirmed Problem Symptom: generalized (728874617) Chronic throat clearing (R68.89) Active confirmed Plan Of Treatment Pending Test Test Name Order Date Pathology 04/13/2021 Future Test Test Name Order Date COLONOSCOPY 02/28/2015 COLONOSCOPY 03/12/2021 Insurance Providers Payer Name Payer Address Payer Phone Subscriber Number Group Number Insured Name Patient Relationship to Insured Coverage Start Date Coverage End Date [facility] [address] [place] [phone] [id number] ABUNDIO KELLER Self - patient is the [...]
--- OUTSIDE RECORDS SUMMARY | 2024-12-31 09:15 | XMS_ITS | Patient Health Record ---
[facility] Address [address] [place] [address] Care Team Providers Care Senior Inspector Name Role Phone Micheal Rush Primary Care Provider Naomie Young Unavailable [phone] Allergies Allergen (clinical drug ingredient) Drug/Non Drug [...] primary osteoarthritis of the ankle and/or foot (014197349) Osteoarthritis of right ankle 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) Active confirmed Problem Localized, primary osteoarthritis of the ankle and/or foot (086304191) Osteoarthritis of left ankle and foot (M19.072) Active confirmed Plan Of Treatment Pending Test Test Name Order Date X ray : Foot, left 3V 11/04/2020 X ray : Foot, right 3V 11/04/2020 [id number], [id number] INJECT or DRAIN, JOINT/BUR SA 11/04/2020 Insurance Providers Payer Name Payer Address Payer Phone Subscriber Number Group Number Insured Name Patient Relationship to Insured Coverage Start Date Coverage End Date [employer] [place] [employer]age [facility] [address] [facility] [place] [address] [id number] Tyler Jerry Self - patient is the insured Medical (General) History Medical History History ICD Code Arthritis Back,Hip,and Knee pain CAD (Cholesterol) Chicken pox Hiatal hernia High blood pressure Joint implants/screws Vascular phlebitis (clots) Surgical History Surgery Date(Month/Year) knee replacement
== END 2024-12-31 09:52 | disposition home or self-care (01) ==
LOC: HO.HMCH 08:47
PROVIDERS: PCP Internal Medicine; Visit Provider Internal Medicine
DX: Z00.00 Encounter for general adult medical examination without abnormal findings (principal); Z51.6 Encounter for desensitization to allergens; R73.02 Impaired glucose tolerance (oral); E78.00 Pure hypercholesterolemia, unspecified; I10 Essential (primary) hypertension; I73.9 Peripheral vascular disease, unspecified; Z23 Encounter for immunization

== ENCOUNTER → 2024-12-31 08:46 | Outpatient (BNVA) | payer MEDICARE, SELFPAY | PROVIDERS: PCP Internal Medicine; Visit Provider Internal Medicine | DX: Z00.00 Encounter for general adult medical examination without abnormal findings (principal); M19.072 Primary osteoarthritis, left ankle and foot; M19.071 Primary osteoarthritis, right ankle and foot; R13.10 Dysphagia, unspecified; R73.02 Impaired glucose tolerance (oral); E78.00 Pure hypercholesterolemia, unspecified; I10 Essential (primary) hypertension; I73.9 Peripheral vascular disease, unspecified; J30.9 Allergic rhinitis, unspecified; L85.3 Xerosis cutis; Z23 Encounter for immunization; Z51.6 Encounter for desensitization to allergens | CPT/HCPCS: 90471; 90656; 99397 ==

== ENCOUNTER 2025-01-14 11:20 | Outpatient (AMB) | payer MEDICARE, SELFPAY | END 2025-01-14 11:23 | disposition home or self-care (01) | LOC: HO.HMGAL 11:20 | PROVIDERS: PCP Internal Medicine; Visit Provider Student in an Organized Health Care Education/Training Program | DX: J30.89 Other allergic rhinitis (principal) | CPT/HCPCS: 95117; 95165 ==